=== PATIENT | female | born 1975 | race Caucasian/White ===

== ENCOUNTER 2018-11-24 11:44 | Emergency (ER) | payer OTHER, MEDICAID, SELFPAY ==
[2018-11-24 11:50] VITALS: BP 112/75; PULSE 64; RESP 12; TEMP 36.8; O2SAT 98; BMI 26.6
--- NOTE | 2018-11-24 12:45 | ED.LOWEXIN ---
HPI - Extremity Injury (Lower) <LUCY Olivo - Last Filed: 11/24/18 18:13> General Chief Complaint: Extremity Injury, Lower Stated Complaint: left knee pain Time Seen by Provider: 11/24/18 12:16 Source: patient Mode of arrival: ambulatory Limitations: no limitations History of Present Illness HPI Narrative: 43-year-old female high cholesterol and hypertension, presents emergency department today complaining of left knee pain x 1 week. She states she possibly twisted it last weekend. She describes the pain as a dull ache located on the medial aspect of her knee, pain is a 6/10 that is worse with movement better with rest. She states her knee occasionally gets waking gives out. She denies any surgeries to her left knee. Patient denies fevers, chest pain, shortness of breath, nausea, vomiting, syncope, left calf pain, ankle swelling, hip pain, or head trauma. Related Data Home Medications Medication Instructions Recorded Confirmed albuterol sulfate [Ventolin HFA] 1 puff INH PRN #0 05/15/16 fluticasone propionate 1 spray INTRANASAL #0 05/15/16 meloxicam [Mobic] 7.5 mg PO AMCC #0 05/15/16 Previous Rx's Medication Instructions Recorded diclofenac sodium 4 gram TOP QID #100 gram 11/24/18 Allergies Allergy/AdvReac Type Severity Reaction Status Date / Time hydrocodone [HYDROCODONE] Allergy Unknown NAUSEA Unverified 08/03/17 12:22 Sulfa (Sulfonamide Allergy Unknown Unverified 08/03/17 12:22 Antibiotics) [SULFA (SULFONAMIDE ANTIBIOTICS)] Review of Systems <LUCY Olivo - Last Filed: 11/24/18 18:13> Review of Systems REVIEW OF SYSTEMS: GENERAL: Denies fever or chills. HENT: No head trauma. EYES: No double vision or vision loss. CARDIOVASCULAR: No chest pain or syncope. RESPIRATORY: No shortness of breath or cough. GASTROINTESTINAL: No nausea, vomiting, diarrhea, or constipation. GENITOURINARY: No flank pain or dysuria. MUSCULOSKELETAL: Complains of left pain, see HPI. INTEGUMENTARY: No rash, lesions, or pruritus. NEURO: No numbness, tingling. PSYCH: No behavior or mood changes. PFSH <LUCY Olivo - Last Filed: 11/24/18 18:13> Medical History No significant medical problems (Acute) Social History Smoking Status: Current every day smoker Social History Smoking Status: Current every day smoker Exam <LUCY Olivo - Last Filed: 11/24/18 18:13> Initial Vital Signs Initial Vital Signs: Vital Signs Temperature 98.2 F 11/24/18 11:50 Pulse Rate 64 11/24/18 11:50 Respiratory Rate 12 11/24/18 11:50 Blood Pressure 112/75 11/24/18 11:50 Pulse Oximetry 98 11/24/18 11:50 PHYSICAL EXAMINATION: GENERAL: Well groomed, alert, and cooperative. Answers questions promptly and appropriately. Vital signs noted. HENT: Normocephalic, atraumatic. EYES: Symmetrical, sclera white, no periorbital swelling. CARDIOVASCULAR: S1 and S2 sounds normal. Regular rate and rhythm, no murmurs, clicks, or bruits. No pedal edema. RESPIRATORY: Normal respiratory rate, trachea midline, airway patent. No stridor, nasal flaring or accessory muscle use. Lungs are clear in all salcido. MUSCULOSKELETAL: Left medial knee tenderness with palpation. Pain elected with Trung's test to medial meniscus. Slight swelling to left knee, decreased flexion due to swelling and pain. Normal extension the left leg. Negative drawer test, LCL and MCL appear stable. Full range of motion to hips and ankles bilaterally. No calf tenderness on examination, no ecchymosis, no pedal edema. Patient walks with slight limp due to left knee pain. Equal tone and mass bilaterally. No spinal tenderness or deformities. EXTREMITIES: CMS intact. SKIN: Warm, dry, soft, appropriate color for ethnicity. No lesions, rashes, or wounds. NEURO: Alert and Oriented X 3. No sensory deficits. PSYCH: Appropriate affect and mood. <Donna Espana DO - Last Filed: 11/25/18 07:13> Initial Vital Signs Initial Vital Signs: Vital Signs Temperature 98.2 F 11/24/18 11:50 Pulse Rate 64 11/24/18 11:50 Respiratory Rate 12 11/24/18 11:50 Blood Pressure 112/75 11/24/18 11:50 Pulse Oximetry 98 11/24/18 11:50 Course <LUCY Olivo - Last Filed: 11/24/18 18:13> Course Narrative: Due to location of pain mechanism of injury, explained to patient that a x-ray may not help in evaluation of her pain. She agreed that she would not like an x-ray at this time. Vital Signs - 8 hr 11/24/18 11:50 Temperature 98.2 F Pulse Rate 64 Respiratory Rate 12 Blood Pressure 112/75 Pulse Oximetry 98 <Donna Espana DO - Last Filed: 11/25/18 07:13> Vital Signs - 8 hr 11/24/18 11:50 Temperature 98.2 F Pulse Rate 64 Respiratory Rate 12 Blood Pressure 112/75 Pulse Oximetry 98 MDM - Extremity Injury (Lower) <LUCY Olivo - Last Filed: 11/24/18 18:13> Medical Records Attestation: I reviewed the patient's medical records. Lab Data Attestation: I reviewed the patient's lab results. MDM Narrative Medical decision making narrative: Differential includes meniscal injury (most likely due to medial joint pain, twisting injury, pain with weight-bearing, positive Trung sign), ligament injury (less likely due to stable ligaments on examination, no significant swelling), and arthritis. Less likely septic joint due to lack of fevers or chills, no surrounding erythema or significant swelling, complains of twisting injury. Strict return precautions given and follow-up instructions discussed. Discharge Plan Departure Patient Disposition: Home Clinical Impression: Acute knee pain Qualifiers: Laterality: left Qualified Code(s): M25.562 - Pain in left knee Discharge Date/Time: 11/24/18 13:12 Interventions: ED Discharge Assessment Last Done: 11/24/18 13:17 Instructions: DI for Knee Pain Activity Restrictions/Additional Instructions: Thank you for entrusting me with your care today. As discussed, you knee examination suggest that you may have a meniscus injury. Please follow-up with your primary care provider for further testing if indicated. We have given you a knee immobilizer to prevent her knee from giving out, you may wear this and the Jered bandage to prevent swelling and pain. I have also prescribed you an ointment to rub on your knee to help decrease inflammation and pain. Return to the emergency department if you develos fevers, chills, shortness of breath, a swollen red joint, calf pain, or hard indurated lump in her calf. Prescriptions: New diclofenac sodium 1 % gel 4 gram TOP QID Qty: 100 RF: 0 No Action meloxicam [Mobic] 7.5 MG tablet 7.5 mg PO AMCC Qty: 0 RF: 0 albuterol sulfate [Ventolin HFA] 90 MCG/PUFF HFA aerosol inhaler 1 puff INH PRNQty: 0 RF: 0 fluticasone propionate 16 GM spray,suspension 1 spray Intranasal Qty: 0 RF: 0 <Donna Espana DO - Last Filed: 11/25/18 07:13> Cosign ED Attending Coscesarature Attestation: I was immediately available in the department for consultation. Documentation has been reviewed. I agree with assessment and plan.
== END 2018-11-24 13:12 | disposition home or self-care (01) ==
PROVIDERS: Emergency Provider Nurse Practitioner
DX: M25.562 Pain in left knee (principal); X50.9XXA Other and unspecified overexertion or strenuous movements or postures, initial encounter
CPT/HCPCS: 99282

== ENCOUNTER → 2019-02-19 14:51 | Outpatient (CLI) | payer OTHER, MEDICAID, SELFPAY ==
--- NOTE | 2019-02-19 | DI.RAD.S_ITS ---
PROCEDURE: XR KUB INDICATIONS: CALCULUS OF KIDNEY TECHNIQUE: One view of the abdomen acquired. COMPARISON: [facility], CR, XR ABDOMEN 1 VIEW, 02/27/2018, 11:04. FINDINGS: Surgical changes and devices: Right upper quadrant surgical clips. Bowel: Bowel gas pattern is normal. Bilateral nephrolithiasis measuring up to 8mm on the left and 5 mm on the right. Bones: No suspicious bony lesions. IMPRESSION: Unchanged bilateral nephrolithiasis as above Dictated by: Keegan Schaeffer M.D. on 02/19/2019 at 15:38 Approved by: Keegan Schaeffer M.D. on 02/19/2019 at 15:40
== END ==
PROVIDERS: Family Provider Urology; PCP Nurse Practitioner Gerontology; Visit Provider Urology
DX: N20.0 Calculus of kidney (principal)
CPT/HCPCS: 74018

== ENCOUNTER → 2019-05-12 13:58 | Outpatient (CLI) | payer OTHER, MEDICAID, SELFPAY ==
--- NOTE | 2019-05-12 | DI.RAD.S_ITS ---
PROCEDURE: XR ABDOMEN 1V INDICATIONS: CALCULUS OF KIDNEY TECHNIQUE: One view of the abdomen acquired. COMPARISON: [facility], CR, XR KUB, 02/19/2019, 15:04. FINDINGS: Surgical changes and devices: Cholecystectomy clips are seen. Bowel: Bowel gas pattern is normal. Soft tissues: There is a nonobstructing 5 mm stone at the inferior pole of the right kidney. Faintly seen likely left kidney stones are also present, yet seen with loss confidence. The previously seen 8mm left-sided kidney stone is no longer seen. No definite ureteral stones are seen. Bones: No suspicious bony lesions. IMPRESSION: Stable nonobstructing 5 mm right-sided kidney stone. Resolution of the previously seen 8mm left-sided kidney stone. Potential tiny stones are seen on the left. If it would be helpful for clinical management decision making, please consider a dedicated noncontrast CT of the abdomen and pelvis for further evaluation. Dictated by: Eb Palacio M.D. on 05/12/2019 at 13:47 Approved by: Eb Palacio M.D. on 05/12/2019 at 13:48
== END ==
PROVIDERS: Family Provider Urology; PCP Nurse Practitioner Gerontology; Visit Provider Urology
DX: N20.0 Calculus of kidney (principal)
CPT/HCPCS: 74018

== ENCOUNTER → 2019-06-11 14:15 | Outpatient (CLI) | payer OTHER, MEDICAID, SELFPAY ==
--- NOTE | 2019-06-11 | DI.MRI.S_ITS ---
PROCEDURE: MR LUMBAR SPINE WO CON INDICATIONS: Low back pain. Bilateral hip and foot pain, numbness TECHNIQUE: Noncontrast sagittal T1 spin echo and T2 fast echo, sagittal STIR, axial T1 and T2 fast spin echo through the lumbar spine. In cases with scoliosis, additional coronal T2 fast spin echo may be performed. COMPARISON: [facility], MR, L-SPINE WITHOUT CONTRAST, 08/13/2014, 13:05. [facility], MR, L-SPINE WITHOUT CONTRAST, 11/25/2011, 14:40. [facility], MR, L-SPINE W&WO CONTRAST, 03/09/2016, 17:42. FINDINGS: Image quality: Excellent. Alignment and Curvature: There is normal bony alignment. Bone Marrow: Marrow is of normal overall signal. No acute vertebral body compression fractures. Spinal Cord: Conus medullaris terminates at the L1 level. Visualized cord demonstrates normal signal and size. Paraspinous Soft Tissues: No paravertebral masses. At the anterior aspect of the left kidney, there is an apparent renal cyst seen, with uniform increased T2-weighted signal and uniform decreased T1 weighted signal. This patient has transitional lumbar anatomy. For the purposes of this examination, the level with the last well-developed disc space is considered to be L5-S1. By this numbering scheme, the L5 level is transitional and partially sacralized. This numbering scheme is chosen to remain consistent with the 2016 prior lumbar spine MRI report. T11-T12: Mild to moderate loss of disc height and disc signal are seen. No significant neural foraminal or central canal narrowing can be seen. T12-L1: Normal appearance. L1-L2: The disc height is well-preserved. Loss of disc signal is seen at this level. Bridging endplate osteophytes are seen. L2-L3: The disc height and disk signal are well-preserved. Mild generalized disc bulge is seen. No significant neural foraminal or central canal narrowing can be seen. When comparison is made with the prior examination, these findings are similar. L3-L4: The disc height is well-preserved. Loss of disc signal is seen at this level. Moderate disc bulge is seen, with a mild central disc protrusion. There is at least moderate bilateral neural foraminal narrowing seen. There is moderate left-sided and mild to moderate right-sided neural foraminal narrowing seen. Moderate to severe central canal narrowing is seen, as on series 7 image 24. There is associated annular fissure seen posteriorly. These imaging findings have progressed compared to the prior study. L4-L5: There is at least moderate loss of disc height and disc signal seen. Prior right hemilaminectomy change is noted. Moderate disc bulge is seen, with a central/right disc extrusion, with an associated annular fissure. Mild to moderate facet hypertrophy is seen. There is at least moderate bilateral neural foraminal narrowing seen. Minimal central canal narrowing is seen. These imaging findings have progressed compared to the prior study. L5-S1: There is a transitional, rudimentary disc seen at this level. No significant neural foraminal or central canal narrowing can be seen. IMPRESSION: Lower lumbar spine degenerative changes are seen, which have progressed at the L3-L4 level and the L4-L5 level compared to 2016. Dictated by: Eb Palacio M.D. on 06/11/2019 at 14:22 Approved by: Eb Palacio M.D. on 06/11/2019 at 14:29
== END ==
PROVIDERS: Family Provider Urology; PCP Nurse Practitioner Gerontology; Referring Provider Acupuncturist; Visit Provider Acupuncturist
DX: M54.5 Low back pain (principal); M47.816 Spondylosis without myelopathy or radiculopathy, lumbar region; M25.551 Pain in right hip; M25.552 Pain in left hip; M79.671 Pain in right foot; M79.672 Pain in left foot; R20.0 Anesthesia of skin
CPT/HCPCS: 72148

== ENCOUNTER 2019-09-20 14:01 | Emergency (ER) | payer OTHER, MEDICAID, SELFPAY ==
[2019-09-20 14:05] VITALS: BP 178/89; PULSE 94; RESP 18; TEMP 36.7; O2SAT 10; BMI 29.7
[2019-09-20 14:35] LABS: Bacteria Urine None Seen; WBC Urine None Seen (0-5/HPF)
[2019-09-20 14:37] LABS: Appearance Urine UA SL CLOUDY; Bilirubin Urine UA NEGATIVE (NEGATIVE); Ketones Urine UA NEGATIVE (NEGATIVE)
[2019-09-20 14:38] LABS: Color Urine UA ORANGE
[2019-09-20 14:52] LABS: Culture Indicated Urine Cult Not Indicated; RBC Urine 0-1/HPF (0-5/HPF); Squamous Epithelial Cell Urine 0-1 /HPF (0-5/HPF)
[2019-09-20] MEDS: KETOROLAC 60 MG/2 ML VIAL 30 MG IV ×2 (15:16→19:36)
--- NOTE | 2019-09-20 15:36 | ED_ITS ---
HPI - Female Genitourinary <Jordyn Barkley PA-C - Last Filed: 09/20/19 22:43> General Chief complaint: Urogenital-Female Stated complaint: Kidney Stone Time Seen by Provider: 09/20/19 15:11 Source: patient Mode of arrival: Ambulatory History of Present Illness HPI Narrative: This is a 44-year-old woman with a known history of 1 ppd smoker, nephrolithiasis and recent lithotripsy 2 months ago on the left who presents with severe pain in her right flank that began this morning at 7:00 a.m.. She says that the pain feels just like when she has had kidney stones have been passing in the past, she has had kidney stones that since she was 21 years old. She has some associated nausea. She did take 1 Flomax that she had left over, and also took 1 OTC and said this morning, her pain was a 10/10 on arrival to [facility] emergency department. She has had some urinary symptoms as well this morning with difficulty passing urine until she got to the emergency department she was able to get a better flow. She has otherwise been in her normal state of health except that she has had a chronic cough for about 2 months now was diagnosed with bronchitis previously given antibiotics and the cough returned within 2 weeks. She is a pack-a-day smoker. She denies fever, vomiting, diarrhea, chills, change in appetite, or any other symptoms. MD Complaint: dysuria and other (passing a stone) Onset (ago): hour(s) (9) Female Urogenital Radiation: R Flank Severity: severe Severity scale (1-10): 10 Quality: Aching (intermittently worse) Duration: constant Relieving factors: none Exacerbating factors: none Urinary symptoms: Difficulty Urinating and Flank Pain Associated symptoms: denies other symptoms Related Data Home Medications Medication Instructions Recorded Confirmed albuterol sulfate [Ventolin HFA] 1 puff INH PRN #0 05/15/16 fluticasone propionate 1 spray INTRANASAL #0 05/15/16 meloxicam [Mobic] 7.5 mg PO AMCC #0 05/15/16 Previous Rx's Medication Instructions Recorded diclofenac sodium 4 gram TOP QID #100 gram 11/24/18 ibuprofen 800 mg PO Q6H #30 tab MDD 3200mg 09/20/19 tamsulosin 0.8 mg PO DAILY #60 cap MDD .8 09/20/19 tamsulosin [Flomax] 0.8 mg PO DAILY #30 cap 09/20/19 Allergies Allergy/AdvReac Type Severity Reaction Status Date / Time hydrocodone [HYDROCODONE] Allergy Unknown NAUSEA Unverified 08/03/17 12:22 Sulfa (Sulfonamide Allergy Unknown Unverified 08/03/17 12:22 Antibiotics) [SULFA (SULFONAMIDE ANTIBIOTICS)] Review of Systems <Jordyn Barkley PA-C - Last Filed: 09/20/19 22:43> Review of Systems Narrative: GENERAL: Denies chills, fatigue, malaise, fever, sweats. HEENT: Denies sinus pain, ear pain, sore throat, difficulty swallowing, dizziness. RESPIRATORY: Denies dyspnea, cough, wheezing, hemoptysis, sputum. CARDIOVASCULAR: Denies chest pain, palpitations, orthopnea, edema, GASTROINTESTINAL: Denies vomiting, endorses some mild nausea on the way here, abdominal pain on the right side/flank, and suprapubically, denies diarrhea, constipation, melena. : Endorses dysuria and difficulty with her stream since 7:00 a.m. this morning, Denies frequency, incontinence, hematuria, urinary retention. MUSCULOSKELETAL: denies weakness, joint pain, or bony pain SKIN: Denies rash, skin lesions, or other NEUROLOGIC: Denies weakness, headache, numbness, change in speech, confusion, seizures, incoordination. PSYCHIATRIC: No concerning psychosocial issues. 12 point review of systems is negative except for those stated above Patient History <Jordyn Barkley PA-C - Last Filed: 09/20/19 22:43> Medical History No significant medical problems (Acute) Substance Use Type: does not use Exam <Jordyn Barkley PA-C - Last Filed: 09/20/19 22:43> Narrative Exam Narrative: GENERAL: 44 year old patient appears stated age. Well-nourished, well-developed patient, in severe distress. HEAD: Atraumatic. Normocephalic. EYES: Pupils equal round and reactive. Extraocular motions intact. No scleral icterus. No injection or drainage. ENT: Nose without bleeding, purulent drainage. Throat without erythema, tonsillar hypertrophy or exudate. Airway patent. NECK: Trachea midline. Non tender CARDIOVASCULAR: Regular rate and rhythm without murmurs, gallops, or rubs. RESPIRATORY: Clear to auscultation. Breath sounds equal bilaterally. No wheezes, rales, or rhonchi. GASTROINTESTINAL: Abdomen soft, slighlty-tender over the suprapubic area and RUQ, nondistended. EXTREMITIES: No edema or joint tenderness. BACK: Nontender without deformity or crepitance. Flank tenderness on the right. NEURO: AOx3. SKIN: No rash or erythema of visible areas Initial Vital Signs Initial Vital Signs: Vital Signs Temperature 98.1 F 09/20/19 14:05 Pulse Rate 94 H 09/20/19 14:05 Respiratory Rate 18 09/20/19 14:05 Blood Pressure 178/89 H 09/20/19 14:05 Pulse Oximetry 10 L 09/20/19 14:05 <Philip Calix MD - Last Filed: 09/21/19 07:57> Initial Vital Signs Initial Vital Signs: Vital Signs Temperature 98.1 F 09/20/19 14:05 Pulse Rate 94 H 09/20/19 14:05 Respiratory Rate 18 09/20/19 14:05 Blood Pressure 178/89 H 09/20/19 14:05 Pulse Oximetry 10 L 09/20/19 14:05 Course <Jordyn Barkley PA-C - Last Filed: 09/20/19 22:43> Orders Ordered: Discontinued Medications Hydromorphone HCl (Dilaudid) 0.5 mg IV NOW ONE Stop: 09/20/19 16:08 Last Admin: 09/20/19 16:23 Dose: 0.5 mg Documented by: RUDY Hydromorphone HCl (Dilaudid) 1 mg IV NOW ONE Stop: 09/20/19 17:21 Last Admin: 09/20/19 17:26 Dose: 1 mg Documented by: ROLLY Sodium Chloride (Normal Saline 0.9%) 1,000 mls @ 150 mls/hr IV CONT FALGUNI Last Infusion: 09/20/19 19:40 Dose: 0 mls/hr Documented by: Admin: 09/20/19 15:58 Dose: 150 mls/hr Documented by: RUDY Ketorolac Tromethamine (Toradol) 30 mg IV NOW ONE Stop: 09/20/19 15:12 Last Admin: 09/20/19 15:16 Dose: 30 mg Documented by: RUDY Ketorolac Tromethamine (Toradol) 30 mg IV NOW ONE Stop: 09/20/19 19:13 Last Admin: 09/20/19 19:36 Dose: 30 mg Documented by: GELY Tamsulosin HCl (Flomax) 0.4 mg PO NOW ONE Stop: 09/20/19 19:22 Last Admin: 09/20/19 19:39 Dose: 0.4 mg Documented by: GELY Consultations Consultation #1: I spoke with Dr. Jarrell who is a colleague of Dr. Baxter, (the patient's urologist) regarding this patient, he advised to call back after we have a CT KUB, called back after we had CT KUB results (a 5 mm stone in the right mid ureter with mild hydronephrosis) and he advised that it is safe to give her another 30 of Toradol for pain relief prior to discharge and suggests that she should have a 30 day prescription of Flomax as well as continue to take NSAIDs for her pain and she can call the clinic tomorrow to arrange follow-up appointment with Dr. Baxter for early next week Time: 19:14 Vital Signs Vital signs: Vital Signs - 8 hr 09/20/19 19:35 Pulse Rate 91 H Respiratory Rate 17 Blood Pressure [Right Arm] 145/72 H Pulse Oximetry 95 <Philip Calix MD - Last Filed: 09/21/19 07:57> Orders Ordered: Discontinued Medications Hydromorphone HCl (Dilaudid) 0.5 mg IV NOW ONE Stop: 09/20/19 16:08 Last Admin: 09/20/19 16:23 Dose: 0.5 mg Documented by: RUDY Hydromorphone HCl (Dilaudid) 1 mg IV NOW ONE Stop: 09/20/19 17:21 Last Admin: 09/20/19 17:26 Dose: 1 mg Documented by: ROLLY Sodium Chloride (Normal Saline 0.9%) 1,000 mls @ 150 mls/hr IV CONT FALGUNI Last Infusion: 09/20/19 19:40 Dose: 0 mls/hr Documented by: Admin: 09/20/19 15:58 Dose: 150 mls/hr Documented by: RUDY Ketorolac Tromethamine (Toradol) 30 mg IV NOW ONE Stop: 09/20/19 15:12 Last Admin: 09/20/19 15:16 Dose: 30 mg Documented by: RUDY Ketorolac Tromethamine (Toradol) 30 mg IV NOW ONE Stop: 09/20/19 19:13 Last Admin: 09/20/19 19:36 Dose: 30 mg Documented by: GELY Tamsulosin HCl (Flomax) 0.4 mg PO NOW ONE Stop: 09/20/19 19:22 Last Admin: 09/20/19 19:39 Dose: 0.4 mg Documented by: GELY Vital Signs Vital signs: Vital Signs - 8 hr 09/20/19 19:35 Pulse Rate 91 H Respiratory Rate 17 Blood Pressure [Right Arm] 145/72 H Pulse Oximetry 95 MDM - Female Genitourinary <Jordyn Barkley PA-C - Last Filed: 09/20/19 22:43> Differential Diagnosis Differential diagnosis: Likely urinary tract infection and other (Ureterolithiasis, hydronephrosis) Medical Records Attestation: I reviewed the patient's medical records. Lab Data Attestation: I reviewed the patient's lab results. Result diagrams: 09/20/19 14:24 09/20/19 14:24 Labs: Lab Results 09/20/19 09/20/19 09/20/19 Range/Units 14:24 14:24 14:30 WBC 15.0 H (4.5-11.0) X10^3/uL RBC 4.30 (4.0-5.2) X10^6/uL Hgb 13.9 (12.0-16.0) g/dL Hct 40.3 (36-46) % MCV 93.8 (80-100) fL MCH 32.3 (26-34) PG MCHC 34.5 (30-36) % RDW 13.2 (11.6-14.8) % Plt Count 303 (150-400) X10^3/uL Neut % (Auto) 64.1 (50-75) % Lymph % (Auto) 24.8 L (25-40) % [place] % (Auto) 8.9 (3-14) % Eos % (Auto) 1.8 L (2-4) % Baso % (Auto) 0.4 (0-2) % Neut # (Auto) 9600 H (2448-0364) /uL Lymph # (Auto) 3700 (2260-4243) /uL [place] # (Auto) 1300 H (0-900) /uL Eos # (Auto) 300 (0-450) /uL Baso # (Auto) 100 (0-100) /uL Sodium 134 L (137-145) mmol/L Potassium 4.3 (3.4-5.1) mmol/L Chloride 102 (98-107) mmol/L Carbon Dioxide 21 L (22-32) mmol/L BUN 23 H (7-17) mg/dL Creatinine 1.20 H (0.52-1.04) mg/dL Estimated GFR 48.8 L (>60) mL/min BUN/Creatinine Ratio 19.2 (6-22) Glucose 115 H (70-100) mg/dL Calcium 9.3 (8.4-10.2) mg/dL Total Bilirubin 0.5 (0.2-1.3) mg/dL AST 32 (14-36) IU/L ALT 12 (<35) IU/L Alkaline Phosphatase 52 (38-126) U/L Total Protein 7.8 (6.3-8.2) g/dL Albumin 4.5 (3.5-5.0) g/dL Globulin 3.3 (1.7-4.1) g/dL Albumin/Globulin Ratio 1.4 (1.0-2.8) Lipase 71 (23-300) U/L Urine Color [place] Urine Appearance Sl cloudy Urine pH TNP Ur Specific [place] TNP Urine Protein TNP Urine Glucose (UA) TNP Urine Ketones Negative (NEGATIVE) Urine Occult Blood TNP Urine Nitrate TNP Urine Bilirubin Negative (NEGATIVE) Urine Urobilinogen TNP Ur Leukocyte Esterase TNP Urine RBC 0-1/hpf (0-5/HPF) Urine WBC None seen (0-5/HPF) Ur Squamous Epith Cells 0-1 /hpf (0-5/HPF) Urine Bacteria None seen (None) Ur Culture Indicated? Cult not indicated Imaging Data CT scan - abdomen/pelvis: Attestation: I personally reviewed and interpreted this imaging study as follows: Radiologist's Impression: [address] [address] [address] Scan Report Signed Patient: Yohana Ayon [facility]#: [id number] : 1975Acct:[id number] Age/Sex: 44 / FDate of Service: 09/20/19 Loc: ED Accession Number: [id number] Procedure: CT kidney ureter bladder (KUB) Ordering Provider: Jordyn Barkley P.A-C PROCEDURE: CT KIDNEY URETER BLADDER (KUB) INDICATIONS: suspect uereterolithiasis TECHNIQUE: Noncontrast 5 mm thick sections acquired from the diaphragms to the symphysis. 5 mm thick coronal and sagittal reformats were then performed. For radiation dose reduction, the following was used: automated exposure control, adjustment of mA and/or kV according to patient size. COMPARISON: None. FINDINGS: Image quality: Excellent. Lung bases: Lung bases are clear. Heart size is normal. Urinary system: There is mild right renal enlargement. Left kidney is normal in size. Small nonobstructing bilateral renal calculi are present. There is moderate right hydronephrosis and mild diffuse right proximal ureteral dilatation. Mild dilatation of the proximal right ureter. Within the right mid/proximal ureter there is a 5 mm diameter calculus with Hounsfield units of 265. No left hydronephrosis. Bladder is decompressed. Other solid organs: Liver is normal in size. Gallbladder is surgically absent no. Pancreas is normal in contours. Spleen is normal in size. No adrenal nodules. Peritoneum and bowel: Unenhanced bowel loops demonstrate normal wall thickness and caliber. No free fluid or air. Normal appendix. Nodes and vessels: No retroperitoneal or mesenteric adenopathy by size criteria. Aorta and inferior vena cava are normal in caliber. Abdominal wall: No ventral hernias. Pelvis: No free pelvic fluid. No inguinal hernias or adenopathy. Bones: No suspicious bony lesions. No vertebral body compression fractures. IMPRESSION: 1. Right proximal ureteral calculus causing moderate right hydronephrosis. 2. Nonobstructing small bilateral renal calculi. 3. Normal appendix. Dictated by: Maribel Ortiz M.D. on 09/20/2019 at 18:16 Approved by: Maribel Ortiz M.D. on 09/20/2019 at 18:20 Abdominal x-ray: Attestation: I personally reviewed and interpreted this imaging study as follows: Radiologist's Impression: [address] [address] XRay Report Signed Patient: Yohana Ayon MMR#: [id number] : 1975Acct:[id number] Age/Sex: 44 / FDate of Service: 09/20/19 Loc: ED Accession Number: [id number] Procedure: XR KUB Ordering Provider: Jordyn Barkley P.A-C PROCEDURE: XR KUB INDICATIONS: ureteral stones TECHNIQUE: One view of the abdomen acquired. COMPARISON: [facility], , XR KUB, 02/19/2019, 15:04. FINDINGS: Surgical changes and devices: Surgical clips consistent with cholecystectomy right upper quadrant. Bowel: Bowel gas pattern is normal. Soft tissues: No suspicious abdominal calcifications. Visualized solid organ contours appear normal in size. Prior plain film imaging of the abdomen/pelvis that identified a rounded calcification overlying the lower third collecting system area of the right kidney measuring only approximately 5 mm in diameter but also a 10 mm diameter crescentic calcification superimposed on the middle third of the left kidney area. Both of these are no longer seen. Bones: No suspicious bony lesions. IMPRESSION: No definite ureteral or renal collecting system stone found. Prior cholecystectomy. Resolution of 2 calculi discussed above from the expected region of the kidneys bilaterally. Dictated by: Skyler Lucas M.D. on 09/20/2019 at 16:20 Approved by: Skyler Lucas M.D. on 09/20/2019 at 16:22 Chest x-ray: Attestation: I personally reviewed and interpreted this imaging study as follows: Radiologist's Impression: [address] [address] XRay Report Signed Patient: Yohana Ayon MMR#: [id number] : 1975Acct:[id number] Age/Sex: 44 / FDate of Service: 09/20/19 Loc: ED Accession Number: [id number] Procedure: XR chest 1V Ordering Provider: Jordyn Barkley P.A-C PROCEDURE: XR CHEST 1V INDICATIONS: cough, wheezing, productive TECHNIQUE: One view of the chest was acquired. COMPARISON: None. FINDINGS: Surgical changes and devices: None. Lungs and pleura: Lungs are clear. No pleural effusions or pneumothorax. Mediastinum: Mediastinal contours appear normal. Heart size is normal. Bones and chest wall: No suspicious bony lesions. Overlying soft tissues appear unremarkable. IMPRESSION: Normal for age, source of current cough and wheezing symptoms is not seen. Dictated by: Skyler Lucas M.D. on 09/20/2019 at 16:20 Approved by: Skyler Lucas M.D. on 09/20/2019 at 16:20 [facility] Narrative Medical decision making narrative: This is a 44-year-old with a history of pack-a-day smoking and frequent passing of kidney stones with lithotripsy on the left kidney 2 months ago who presents to the emergency department with severe right flank pain radiating to her groin that began at 7:00 a.m. this morning. A partner of her urologist was contacted regarding her case. Differential diagnoses that were considered include nephrolithiasis, ureterolithiasis, UTI, pyelonephritis, appendicitis, colitis, cholecystitis. Based on her exam history and imaging a suspect ureterolithiasis with hydronephrosis, the patient was treated with Dilaudid, Toradol, and Flomax in the emergency department she was given a prescription for high-dose ibuprofen and Flomax and her urologist partner was contacted. I have low suspicion that there is any other acute abdominal process. <Philip Calix MD - Last Filed: 09/21/19 07:57> Lab Data Labs: Lab Results 09/20/19 09/20/19 09/20/19 Range/Units 14:24 14:24 14:30 WBC 15.0 H (4.5-11.0) X10^3/uL RBC 4.30 (4.0-5.2) X10^6/uL Hgb 13.9 (12.0-16.0) g/dL Hct 40.3 (36-46) % MCV 93.8 (80-100) fL MCH 32.3 (26-34) PG MCHC 34.5 (30-36) % RDW 13.2 (11.6-14.8) % Plt Count 303 (150-400) X10^3/uL Neut % (Auto) 64.1 (50-75) % Lymph % (Auto) 24.8 L (25-40) % [place] % (Auto) 8.9 (3-14) % Eos % (Auto) 1.8 L (2-4) % Baso % (Auto) 0.4 (0-2) % Neut # (Auto) 9600 H (1551-3825) /uL Lymph # (Auto) 3700 (7767-8738) /uL [place] # (Auto) 1300 H (0-900) /uL Eos # (Auto) 300 (0-450) /uL Baso # (Auto) 100 (0-100) /uL Sodium 134 L (137-145) mmol/L Potassium 4.3 (3.4-5.1) mmol/L Chloride 102 (98-107) mmol/L Carbon Dioxide 21 L (22-32) mmol/L BUN 23 H (7-17) mg/dL Creatinine 1.20 H (0.52-1.04) mg/dL Estimated GFR 48.8 L (>60) mL/min BUN/Creatinine Ratio 19.2 (6-22) Glucose 115 H (70-100) mg/dL Calcium 9.3 (8.4-10.2) mg/dL Total Bilirubin 0.5 (0.2-1.3) mg/dL AST 32 (14-36) IU/L ALT 12 (<35) IU/L Alkaline Phosphatase 52 (38-126) U/L Total Protein 7.8 (6.3-8.2) g/dL Albumin 4.5 (3.5-5.0) g/dL Globulin 3.3 (1.7-4.1) g/dL Albumin/Globulin Ratio 1.4 (1.0-2.8) Lipase 71 (23-300) U/L Urine Color [place] Urine Appearance Sl cloudy Urine pH TNP Ur Specific [place] TNP Urine Protein TNP Urine Glucose (UA) TNP Urine Ketones Negative (NEGATIVE) Urine Occult Blood TNP Urine Nitrate TNP Urine Bilirubin Negative (NEGATIVE) Urine Urobilinogen TNP Ur Leukocyte Esterase TNP Urine RBC 0-1/hpf (0-5/HPF) Urine WBC None seen (0-5/HPF) Ur Squamous Epith Cells 0-1 /hpf (0-5/HPF) Urine Bacteria None seen (None) Ur Culture Indicated? Cult not indicated Discharge Plan Departure Patient Disposition: Home Clinical Impression: Right ureteral stone, Acute right flank pain Discharge Date/Time: 09/20/19 19:54 Instructions: DI for Kidney Stones Activity Restrictions/Additional Instructions: Thank you for allowing us to be part of her care in the emergency department today. There is no evidence of an emergent or life threatening illness at this time, but follow up with your doctor in 1-2 days is recommended nonetheless to continue to rule out serious underlying causes of your symptoms. Please call the office for an appointment. Please return to the Emergency Department for any worsening or persistent symptoms. Please take medications as directed. This CT scan did show that you have a 5 mm stone in the middle of your right ureter that should explain the cause of the pain in you have been having. After consultation with your urologist office, they recommend that there is a good chance that this will pass on its own given the size encourage you to take Flomax to help pass the stone and NSAIDs for pain as well as strain your urine at. I have prescribed a higher dose of ibuprofen for you to take as well as the flomax. Please monitor your symptoms and if you develop a fever, nausea or anything else of concern to you please call your urologist office or seek medical care immediately. You should call Dr. Negron office in the morning to set up an appointment for follow-up. Prescriptions: New tamsulosin [Flomax] 0.4 mg capsule 0.8 mg PO DAILY Qty: 30 RF: 0 ibuprofen 800 mg tablet 800 mg PO Q6H MDD 3200mg Qty: 30 RF: 0 tamsulosin 0.4 mg capsule 0.8 mg PO DAILY MDD .8 Qty: 60 RF: 0 No Action meloxicam [Mobic] 7.5 MG tablet 7.5 mg PO AMCC Qty: 0 RF: 0 albuterol sulfate [Ventolin HFA] 90 MCG/PUFF HFA aerosol inhaler 1 puff INH PRNQty: 0 RF: 0 fluticasone propionate 16 GM spray,suspension 1 spray Intranasal Qty: 0 RF: 0 diclofenac sodium 1 % gel 4 gram TOP QID Qty: 100 RF: 0 Referrals: Susan Baxter MD [Family Provider] - Caitlin Petit ARNP [Primary Care Provider] -
[2019-09-20] MEDS: SODIUM CHLORIDE 0.9% 1,000 ML 150 ML IV (15:58)
[2019-09-20 16:03] LABS: Add Manual Diff / Slide Review NO; Basophils Absolute Auto 100 /uL (0-100); Basophils Percent Auto 0.4 % (0-2); Eosinophils Absolute Auto 300 /uL (0-450); Eosinophils Percent Auto 1.8 % (2-4); Hematocrit 40.3 % (36-46); Hemoglobin 13.9 g/dL (12.0-16.0); Lymphocytes Absolute Auto 3700 /uL (1100-4500); Lymphocytes Percent Auto 24.8 % (25-40); Mean Corpuscular HGB Conc 34.5 % (30-36); Mean Corpuscular Hemoglobin 32.3 PG (26-34); Mean Corpuscular Volume 93.8 fL (80-100); Monocytes Absolute Auto 1300 /uL (0-900); Monocytes Percent Auto 8.9 % (3-14); Neutrophils Absolute Auto 9600 /uL (1500-7000); Neutrophils Percent Auto 64.1 % (50-75); Platelet Count 303 X10^3/uL (150-400); Red Cell Distribution Width 13.2 % (11.6-14.8)
--- NOTE | 2019-09-20 16:05 | DI.RAD.S_ITS ---
PROCEDURE: XR CHEST 1V INDICATIONS: cough, wheezing, productive TECHNIQUE: One view of the chest was acquired. COMPARISON: None. FINDINGS: Surgical changes and devices: None. Lungs and pleura: Lungs are clear. No pleural effusions or pneumothorax. Mediastinum: Mediastinal contours appear normal. Heart size is normal. Bones and chest wall: No suspicious bony lesions. Overlying soft tissues appear unremarkable. IMPRESSION: Normal for age, source of current cough and wheezing symptoms is not seen. Dictated by: Skyler Lucas M.D. on 09/20/2019 at 16:20 Approved by: Skyler Lucas M.D. on 09/20/2019 at 16:20
[2019-09-20 16:10] LABS: Alanine Aminotransferase 12 IU/L (<35); Albumin 4.5 g/dL (3.5-5.0); Albumin Globulin Ratio 1.4 (1.0-2.8); Alkaline Phosphatase 52 U/L (38-126); Aspartate Aminotransferase 32 IU/L (14-36); BUN Creatinine Ratio 19.2 (6-22); Bilirubin Total 0.5 mg/dL (0.2-1.3); Blood Urea Nitrogen 23 mg/dL (7-17); Calcium 9.3 mg/dL (8.4-10.2); Carbon Dioxide 21 mmol/L (22-32); Chloride 102 mmol/L (98-107); Estimated Glomerular Filt Rate 48.8 mL/min (>60); Globulin 3.3 g/dL (1.7-4.1); Glucose 115 mg/dL (70-100); HEMOLYSIS < 15 (0-50); Lipase 71 U/L (23-300); Potassium 4.3 mmol/L (3.4-5.1); Sodium 134 mmol/L (137-145); Total Protein 7.8 g/dL (6.3-8.2)
[2019-09-20] MEDS: HYDROMORPHONE 0.5 MG INJ IV (16:23)
--- NOTE | 2019-09-20 17:20 | PC.NURSE ---
pt complaining of increased pain, 12/02. RN roslyn alonso
[2019-09-20] MEDS: HYDROMORPHONE 1 MG INJ IV (17:26)
--- NOTE | 2019-09-20 17:48 | DI.CT.S_ITS ---
PROCEDURE: CT KIDNEY URETER BLADDER (KUB) INDICATIONS: suspect uereterolithiasis TECHNIQUE: Noncontrast 5 mm thick sections acquired from the diaphragms to the symphysis. 5 mm thick coronal and sagittal reformats were then performed. For radiation dose reduction, the following was used: automated exposure control, adjustment of mA and/or kV according to patient size. COMPARISON: None. FINDINGS: Image quality: Excellent. Lung bases: Lung bases are clear. Heart size is normal. Urinary system: There is mild right renal enlargement. Left kidney is normal in size. Small nonobstructing bilateral renal calculi are present. There is moderate right hydronephrosis and mild diffuse right proximal ureteral dilatation. Mild dilatation of the proximal right ureter. Within the right mid/proximal ureter there is a 5 mm diameter calculus with Hounsfield units of 265. No left hydronephrosis. Bladder is decompressed. Other solid organs: Liver is normal in size. Gallbladder is surgically absent no. Pancreas is normal in contours. Spleen is normal in size. No adrenal nodules. Peritoneum and bowel: Unenhanced bowel loops demonstrate normal wall thickness and caliber. No free fluid or air. Normal appendix. Nodes and vessels: No retroperitoneal or mesenteric adenopathy by size criteria. Aorta and inferior vena cava are normal in caliber. Abdominal wall: No ventral hernias. Pelvis: No free pelvic fluid. No inguinal hernias or adenopathy. Bones: No suspicious bony lesions. No vertebral body compression fractures. IMPRESSION: 1. Right proximal ureteral calculus causing moderate right hydronephrosis. 2. Nonobstructing small bilateral renal calculi. 3. Normal appendix. Dictated by: Maribel Ortiz M.D. on 09/20/2019 at 18:16 Approved by: Maribel Ortiz M.D. on 09/20/2019 at 18:20
[2019-09-20 19:35] VITALS: BP 145/72; PULSE 91; RESP 17; O2SAT 95
[2019-09-20] MEDS: TAMSULOSIN 0.4 MG CAPSULE PO (19:39)
== END 2019-09-20 19:54 | disposition home or self-care (01) ==
PROVIDERS: Emergency Provider Student in an Organized Health Care Education/Training Program; Family Provider Urology; PCP Nurse Practitioner Gerontology
DX: N20.1 Calculus of ureter (principal); Z87.442 Personal history of urinary calculi; R10.9 Unspecified abdominal pain; R05 Cough; R06.2 Wheezing; R30.0 Dysuria
CPT/HCPCS: 36415; 71045; 74018; 74176; 80053; 81001; 83690; 85025; 96361; 96374; 96375; 96376; 99284; J1170; J1885

== ENCOUNTER 2019-09-25 17:22 | Emergency (ER) | payer OTHER, MEDICAID, SELFPAY ==
[2019-09-25 17:25] VITALS: BP 140/86; PULSE 110; RESP 18; TEMP 37; O2SAT 98
--- NOTE | 2019-09-25 17:38 | ED_ITS ---
HPI - Female Genitourinary General Chief complaint: Urogenital-Female Stated complaint: Had Kidney Stone, May Have Not Passed, Bloated Time Seen by Provider: 09/25/19 17:25 Source: patient Mode of arrival: Ambulatory Limitations: no limitations History of Present Illness HPI Narrative: 44-year-old female daily smoker with a history of kidney stones and asthma presents with a chief complaint of severe right flank pain and bloating of her abdomen. Her pain is worse with motion and improves with rest. She has frequency of urination but denies any fever or chills. She has has some nausea. She has been taking all of her medications as per neurology's recommendations including multiple stool softeners. She has had multiple rather large bowel movements. She states her stone is 5 mm and that size has histori ankur past in her. MD Complaint: other Onset (ago): hour(s) Location: RLQ Female Urogenital Radiation: R Flank Severity: moderate Quality: Aching and Cramping Duration: constant Urinary symptoms: Difficulty Urinating and Flank Pain Associated symptoms: denies other symptoms Related Data Home Medications Medication Instructions Recorded Confirmed albuterol sulfate [Ventolin HFA] 1 puff INH PRN #0 05/15/16 fluticasone propionate 1 spray INTRANASAL #0 05/15/16 meloxicam [Mobic] 7.5 mg PO AMCC #0 05/15/16 Previous Rx's Medication Instructions Recorded diclofenac sodium 4 gram TOP QID #100 gram 11/24/18 ibuprofen 800 mg PO Q6H #30 tab MDD 3200mg 09/20/19 ketorolac 10 mg PO Q8H PRN #15 tab 09/25/19 Allergies Allergy/AdvReac Type Severity Reaction Status Date / Time hydrocodone [HYDROCODONE] Allergy Unknown NAUSEA Verified 09/25/19 17:35 Sulfa (Sulfonamide Allergy Unknown Verified 09/25/19 17:35 Antibiotics) [SULFA (SULFONAMIDE ANTIBIOTICS)] tamsulosin [From Flomax] AdvReac Intermediate Vomiting Verified 09/25/19 17:35 Review of Systems Constitutional Constitutional: Denies chills, Denies fatigue, Denies fever(s), Denies frequent falls, Denies lethargy and Denies weakness Eyes Eyes: Denies change in vision, Denies eye discharge, Denies irritation and Denies loss of vision ENT Ears, Nose, Mouth, and Throat: Denies change in voice, Denies dizziness, Denies neck pain, Denies sore throat and Denies throat swelling Cardiovascular Cardiovascular: Denies chest pain, Denies irregular heart rhythm, Denies lightheadedness, Denies palpitations, Denies dyspnea, Denies dyspnea on exertion and Denies orthopnea Respiratory Respiratory: Denies cough, Denies dyspnea, Denies dyspnea on exertion and Denies wheezing Gastrointestinal Gastrointestinal: Denies abdominal pain, Denies change in bowel habits, Denies diarrhea, Denies nausea and Denies vomiting Genitourinary Genitourinary: Denies hematuria, Reports flank pain, Denies urinary incontinence and Denies urinary urgency Musculoskeletal Musculoskeletal: Denies back pain, Denies muscle weakness, Denies neck pain, Denies numbness and Denies tingling Integumentary/Breasts Skin/Breast: Denies pruritus, Denies erythema, Denies rash and Denies wounds Neurologic Neurologic: Denies behavioral changes, Denies confusion, Denies dizziness, Denies frequent falls, Denies loss of vision, Denies numbness, Denies tingling and Denies weakness Psychiatric Psychiatric: Denies anxiety, Denies behavioral changes, Denies confusion, Denies depression, Denies homicidal ideation and Denies suicidal ideation Endocrine Endocrine: Denies fatigue, Denies flushing and Denies palpitations Hematologic/Lymphatic Hematologic/Lymphatic: Denies easy bruising Allergic/Immunologic Allergic/Immunologic: Denies urticaria, Denies throat swelling and Denies wheezing Patient History Medical History No significant medical problems (Acute) alcohol intake frequency: 0-2 drinks per day Substance Use Type: does not use Exam Narrative Exam Narrative: GENERAL: [44] year old patient appears stated age. Well- nourished, well-developed patient, in mild distress. HEAD: Atraumatic. Normocephalic. EYES: Pupils equal round and reactive. Extraocular motions intact. No scleral icterus. No injection or drainage. ENT: Nose without bleeding, purulent drainage. Throat without erythema, tonsillar hypertrophy or exudate. Airway patent. NECK: Trachea midline. Non tender CARDIOVASCULAR: Regular rate and rhythm without murmurs, gallops, or rubs. RESPIRATORY: Clear to auscultation. Breath sounds equal bilaterally. No wheezes, rales, or rhonchi. GASTROINTESTINAL: Abdomen soft, mild bloating, nondistended. Right CVA tenderness EXTREMITIES: No edema or joint tenderness. BACK: Nontender without deformity or crepitance. No flank tenderness. NEURO: AOx3. SKIN: No rash or erythema of visible areas Initial Vital Signs Initial Vital Signs: Vital Signs Temperature 98.6 F 09/25/19 17:25 Pulse Rate 110 H 09/25/19 17:25 Respiratory Rate 18 09/25/19 17:25 Blood Pressure 140/86 09/25/19 17:25 Pulse Oximetry 98 09/25/19 17:25 Course Orders Ordered: ED Orders 09/25/19 17:36 US renal complete Stat 09/25/19 17:43 Complete Blood Count AUTO DIFF Stat Comprehensive Metabolic Panel Stat 09/25/19 19:04 XR acute abdomen series Stat Discontinued Medications Lidocaine HCl 6.5 ml/ Sodium (Chloride) 56.5 mls @ 339 mls/hr IV NOW ONE Stop: 09/25/19 17:38 Last Infusion: 09/25/19 18:40 Dose: 0 mls/hr Documented by: Admin: 09/25/19 18:05 Dose: 339 mls/hr Documented by: JOEL Sodium Chloride (Normal Saline 0.9%) 1,000 mls @ 1,000 mls/hr IV BOLUS ONE Stop: 09/25/19 18:35 Last Infusion: 09/25/19 19:50 Dose: 0 mls/hr Documented by: Admin: 09/25/19 18:03 Dose: 1,000 mls/hr Documented by: JOEL Ketorolac Tromethamine (Toradol) 15 mg IV NOW ONE Stop: 09/25/19 17:37 Last Admin: 09/25/19 18:04 Dose: 15 mg Documented by: JOEL Vital Signs Vital signs: Vital Signs - 8 hr 09/25/19 17:25 09/25/19 19:52 09/25/19 20:18 Temperature 98.6 F Pulse Rate 110 H 89 82 Respiratory Rate 18 17 Blood Pressure 140/86 132/69 Blood Pressure [Left Arm] 141/78 H Pulse Oximetry 98 94 96 MDM - Female Genitourinary Lab Data Result diagrams: 09/25/19 17:43 09/25/19 17:43 Labs: Lab Results 09/25/19 09/25/19 Range/Units 17:43 17:43 WBC 9.3 (4.5-11.0) X10^3/uL RBC 3.97 L (4.0-5.2) X10^6/uL Hgb 12.7 (12.0-16.0) g/dL Hct 37.1 (36-46) % MCV 93.4 (80-100) fL MCH 32.1 (26-34) PG MCHC 34.3 (30-36) % RDW 12.6 (11.6-14.8) % Plt Count 351 (150-400) X10^3/uL Neut % (Auto) 59.8 (50-75) % Lymph % (Auto) 23.8 L (25-40) % [place] % (Auto) 13.0 (3-14) % Eos % (Auto) 2.8 (2-4) % Baso % (Auto) 0.6 (0-2) % Neut # (Auto) 5600 (8620-6311) /uL Lymph # (Auto) 2200 (0555-8929) /uL [place] # (Auto) 1200 H (0-900) /uL Eos # (Auto) 300 (0-450) /uL Baso # (Auto) 100 (0-100) /uL Sodium 139 (137-145) mmol/L Potassium 4.3 (3.4-5.1) mmol/L Chloride 109 H (98-107) mmol/L Carbon Dioxide 22 (22-32) mmol/L BUN 18 H (7-17) mg/dL Creatinine 1.10 H (0.52-1.04) mg/dL Estimated GFR 54.0 L (>60) mL/min BUN/Creatinine Ratio 16.4 (6-22) Glucose 110 H (70-100) mg/dL Calcium 9.0 (8.4-10.2) mg/dL Total Bilirubin 0.3 (0.2-1.3) mg/dL AST 41 H (14-36) IU/L ALT 27 (<35) IU/L Alkaline Phosphatase 62 (38-126) U/L Total Protein 7.0 (6.3-8.2) g/dL Albumin 3.8 (3.5-5.0) g/dL Globulin 3.2 (1.7-4.1) g/dL Albumin/Globulin Ratio 1.2 (1.0-2.8) Urine Dip Bedside Urine Glucose Negative Bedside Urine Bilirubin - Negative Bedside Urine Ketone - Negative Urine Specific [place] 1.010 Bedside Urine Occult Blood +/- Bedside Urine pH 6.0 Bedside Urine Protein - Negative Bedside Urine Urobilinogen - Negative Bedside Urine Nitrite - Negative Bedside Urine Leukocytes - Negative Esterase Imaging Data Renal US: Radiologist's Impression: Chart Viewer Diagnostics DATE TYPE STATUS AUTHOR Hx 09/25/19 17:36 Yunior Perezderic 09/20/19 17:48 Maribel Ortiz 09/20/19 16:05 Skyler Lucas 09/20/19 15:38 Skyler Lucas 06/11/19 00:00 Eb Palacio 05/12/19 00:00 Eb Palacio 02/19/19 00:00 Keegan Schaeffer Stephanie M 44, 1975 [facility] ER, Main ED R02 86.183kg Urogenital-Female Search Chart No Data to Display NAUSEA Vomiting ONSET Today 17:25 Yohana Ayon 44 F 1975 [place] [address] Ultrasound Report Signed Patient: Yohana Ayon MMR#: [id number] : 1975Acct:[id number] Age/Sex: 44 / FDate of Service: 09/25/19 Loc: ED Accession Number: [id number] Procedure: US renal complete Ordering Provider: Abhijit Salas D.O. PROCEDURE: US RENAL COMPLETE INDICATIONS: R FLANK PAIN, KNOWN STONE TECHNIQUE: Real-time scanning was performed of the kidneys and bladder, with image docu mentation. COMPARISON: [facility], CT, CT KIDNEY URETER BLADDER (KUB), 09/20/2019, 17:56. FINDINGS: Kidneys: Kidneys are normal in size. Right kidney measures 14.2 cm long; left kidney measures 12.4 cm long. Right renal cortical thickness is 1.3 cm; left renal cortical thickness is 1.2 cm. Renal cortical echotexture is normal. Again noted is moderate right hydronephrosis. There is also a 5 mm nonobstructing right lower pole renal stone. No suspicious solid mass lesions. Bladder: Pre-void bladder volume is 157 mL. Post-void residual is zero mL. Pre-void images demonstrate no intraluminal masses or stones. On pre-void images, a left ureteral jet but no ureteral jet is noted with color Doppler interrogation. (Of note, ureteral jets may not be detectable in up to 25% of cases due to insufficient differences in specific gravity between ureteral and bladder urine). Miscellaneous: No free pelvic fluid. IMPRESSION: Continued moderate right hydronephrosis suggests continued right ureteral obstruction by a stone. Dictated by: Teo Perez M.D. on 09/25/2019 at 18:37 Approved by: Teo Perez M.D. on 09/25/2019 at 18:44 Discharge Plan Departure Patient Disposition: Home Clinical Impression: Renal colic on right side, Abdominal bloating Discharge Date/Time: 09/25/19 20:18 Instructions: DI for Kidney Stones, DI for Constipation Activity Restrictions/Additional Instructions: *You have been diagnosed with [right flank pain from known kidney stone, bloating likely a consequence of large stool burden] *What to do: *Take medications as directed *Follow up with your primary care provider in 2-3 days, call for an appointment. Let them know you were seen in the Emergency Department and that we ask that you be seen in follow up *Return to ER if you should have any new, worsening or concerning symptoms Prescriptions: New ketorolac 10 mg tablet 10 mg PO Q8H PRN (Reason: pain) Qty: 15 RF: 0 No Action meloxicam [Mobic] 7.5 MG tablet 7.5 mg PO AMCC Qty: 0 RF: 0 albuterol sulfate [Ventolin HFA] 90 MCG/PUFF HFA aerosol inhaler 1 puff INH PRNQty: 0 RF: 0 fluticasone propionate 16 GM spray,suspension 1 spray Intranasal Qty: 0 RF: 0 ibuprofen 800 mg tablet 800 mg PO Q6H MDD 3200mg Qty: 30 RF: 0 diclofenac sodium 1 % gel 4 gram TOP QID Qty: 100 RF: 0 Referrals: Susan Baxter MD [Family Provider] - Caitlin Petit ARNP [Primary Care Provider] -
[2019-09-25 17:52] LABS: Add Manual Diff / Slide Review NO; Basophils Absolute Auto 100 /uL (0-100); Basophils Percent Auto 0.6 % (0-2); Eosinophils Absolute Auto 300 /uL (0-450); Eosinophils Percent Auto 2.8 % (2-4); Hematocrit 37.1 % (36-46); Hemoglobin 12.7 g/dL (12.0-16.0); Lymphocytes Absolute Auto 2200 /uL (1100-4500); Lymphocytes Percent Auto 23.8 % (25-40); Mean Corpuscular HGB Conc 34.3 % (30-36); Mean Corpuscular Hemoglobin 32.1 PG (26-34); Mean Corpuscular Volume 93.4 fL (80-100); Monocytes Absolute Auto 1200 /uL (0-900); Neutrophils Absolute Auto 5600 /uL (1500-7000); Neutrophils Percent Auto 59.8 % (50-75); Platelet Count 351 X10^3/uL (150-400); Red Blood Cell Count 3.97 X10^6/uL (4.0-5.2); Red Cell Distribution Width 12.6 % (11.6-14.8); White Blood Cell Count 9.3 X10^3/uL (4.5-11.0)
[2019-09-25] MEDS: SODIUM CHLORIDE 0.9% 1,000 ML 1000 ML IV (18:03)
[2019-09-25] MEDS: KETOROLAC 60 MG/2 ML VIAL 15 MG IV (18:04)
[2019-09-25] MEDS: LIDOCAINE 2% 6.5 ML in SODIUM CHLORIDE 0.9% 50 ML 339 ML IV (18:05)
[2019-09-25 18:10] LABS: Alanine Aminotransferase 27 IU/L (<35); Albumin 3.8 g/dL (3.5-5.0); Albumin Globulin Ratio 1.2 (1.0-2.8); Alkaline Phosphatase 62 U/L (38-126); Aspartate Aminotransferase 41 IU/L (14-36); BUN Creatinine Ratio 16.4 (6-22); Bilirubin Total 0.3 mg/dL (0.2-1.3); Blood Urea Nitrogen 18 mg/dL (7-17); Carbon Dioxide 22 mmol/L (22-32); Chloride 109 mmol/L (98-107); Globulin 3.2 g/dL (1.7-4.1); Glucose 110 mg/dL (70-100); HEMOLYSIS < 15 (0-50); Potassium 4.3 mmol/L (3.4-5.1); Sodium 139 mmol/L (137-145)
--- NOTE | 2019-09-25 19:04 | DI.RAD.S_ITS ---
PROCEDURE: XR ACUTE ABDOMEN SERIES INDICATIONS: Abdominal pain. bloating TECHNIQUE: One view chest and two views of the abdomen were acquired. COMPARISON: [facility], CT, CT KIDNEY URETER BLADDER (KUB), 09/20/2019, 17:56. FINDINGS: Surgical changes and devices: Cholecystectomy clips.. Chest: Lungs are clear. Heart size is normal. No pleural effusions. No pneumoperitoneum. Abdomen: Bowel gas pattern is normal. No suspicious calcifications. Visualized solid organ contours appear normal. The obstructing right ureteral stone seen on CT 5 days ago is not identifiable by plain films. Bones: No suspicious bony lesions. IMPRESSION: 1. No evidence of acute pulmonary process. 2. No evidence acute abdominal process. Dictated by: Teo Perez M.D. on 09/25/2019 at 19:26 Approved by: Teo Perez M.D. on 09/25/2019 at 19:29
[2019-09-25 19:52] VITALS: BP 141/78; PULSE 89; RESP 17; O2SAT 94
[2019-09-25 20:18] VITALS: BP 132/69; PULSE 82; O2SAT 96
== END 2019-09-25 20:18 | disposition home or self-care (01) ==
PROVIDERS: Emergency Provider Emergency Medicine; Family Provider Urology; PCP Nurse Practitioner Gerontology
DX: N20.0 Calculus of kidney (principal); R14.0 Abdominal distension (gaseous)
CPT/HCPCS: 36415; 74022; 76770; 80053; 81003; 85025; 96365; 96375; 99284; J1885

== ENCOUNTER 2021-01-20 10:43 | Emergency (ER) | payer OTHER, MEDICAID, SELFPAY ==
[2021-01-20 10:55] VITALS: BP 109/78; PULSE 92; RESP 18; TEMP 37.3; O2SAT 95; BMI 33.9
[2021-01-20 11:27] LABS: Bacteria Urine None Seen; Culture Indicated Urine Cult Not Indicated; RBC Urine 5-10/HPF (0-5/HPF); Squamous Epithelial Cell Urine 5-10 /HPF (0-5/HPF); WBC Urine 5-10/HPF (0-5/HPF)
[2021-01-20] MEDS: SODIUM CHLORIDE 0.9% 1,000 ML 1000 ML IV (12:02)
--- NOTE | 2021-01-20 12:02 | ED_ITS ---
HPI - Fever General Chief Complaint: Fever Stated Complaint: FEVER,HEADACHE, ABD PAIN X 7 DAYS. NEG COVID Time Seen by Provider: 01/20/21 10:58 Source: patient Mode of arrival: Ambulatory Limitations: no limitations History of Present Illness HPI Narrative: 45-year-old female daily smoker presents multiple symptoms over the past week including generalized headache, runny nose, nasal congestion, sore throat, cough as well as abdominal bloating and urinary frequency, urgency and dysuria. She has been tested for COVID which has thus far been negative. She denies any significant shortness of breath. She denies any recent measured fever though subjectively feels warm. Her headache is generalized has been rath er persistent for many days. She has no neck pain or meningeal signs. She has no confusion, blurred vision or trouble with speech. She denies any unilateral numbness, tingling or weakness. Patient has generalized abdominal bloating and discomfort without any significant or obvious provocation or palliation. She has had no change in bowel habits such as constipation or diarrhea. Related Data Home Medications Medication Instructions Recorded Confirmed albuterol sulfate 90 mcg/actuation 1 puff INH PRN #0 05/15/16 aerosol inhaler (Ventolin HFA) fluticasone propionate 50 1 spray INTRANASAL #0 05/15/16 mcg/actuation nasal spray,suspension meloxicam 7.5 mg tablet (Mobic) 7.5 mg PO AMCC #0 05/15/16 Previous Rx's Medication Instructions Recorded diclofenac sodium 1 % topical gel 4 gram TOP QID #100 gram 11/24/18 ibuprofen 800 mg tablet 800 mg PO Q6H #30 tab MDD 3200mg 09/20/19 ketorolac 10 mg tablet 10 mg PO Q8H PRN #15 tab 09/25/19 cefpodoxime 200 mg tablet 200 mg PO BID 10 Days #20 tab 01/20/21 ketorolac 10 mg tablet 10 mg PO Q6H PRN #14 tab 01/20/21 ondansetron 4 mg disintegrating 4 mg PO TID-QID PRN #10 tab 01/20/21 tablet Allergies Allergy/AdvReac Type Severity Reaction Status Date / Time hydrocodone [HYDROCODONE] Allergy Unknown NAUSEA Verified 01/20/21 11:01 Sulfa (Sulfonamide Allergy Unknown Verified 01/20/21 11:01 Antibiotics) [SULFA (SULFONAMIDE ANTIBIOTICS)] tamsulosin [From Flomax] AdvReac Intermediate Vomiting Verified 01/20/21 11:01 Review of Systems Review of Systems Narrative: GENERAL: See HPI HEENT: See HPI RESPIRATORY: Denies dyspnea, cough, wheezing, hemoptysis, sputum. CARDIOVASCULAR: Denies chest pain, palpitations, orthopnea, edema, GASTROINTESTINAL: See HPI : See HP MUSCULOSKELETAL: denies weakness, joint pain, or bony pain SKIN: Denies rash, skin lesions, or other NEUROLOGIC: Denies weakness, headache, numbness, change in speech, confusion, seizures, incoordination. PSYCHIATRIC: No concerning psychosocial issues. 12 point review of systems is negative except for those stated above Patient History Medical History (Updated 01/20/21 @ 14:53 by Abhijit Salas DO) No significant medical problems Social History Smoking Status: Current every day smoker Smoking Status: Current every day smoker alcohol intake frequency: 0-2 drinks per day Substance Use Type: does not use Exam Narrative Exam Narrative: GENERAL: [45 year old patient appears stated age. Well-developed patient, in mild distress. HEAD: Atraumatic. Normocephalic. EYES: Pupils equal round and reactive. Extraocular motions intact. No scleral icterus. No injection or drainage. ENT: Nose without bleeding, purulent drainage. Throat without erythema, tonsillar hypertrophy or exudate. Airway patent. NECK: Trachea midline. Non tender. No meningeal signs CARDIOVASCULAR: Regular rate and rhythm without murmurs, gallops, or rubs. RESPIRATORY: Clear to auscultation. Breath sounds equal bilaterally. No wheezes, rales, or rhonchi. GASTROINTESTINAL: Abdomen soft, non-tender, nondistended. EXTREMITIES: No edema or joint tenderness. BACK: Nontender without deformity or crepitance. No flank tenderness. NEURO: AOx3. SKIN: No rash or erythema of visible areas Initial Vital Signs Initial Vital Signs: Vital Signs Temperature 99.1 F 01/20/21 10:55 Pulse Rate 92 H 01/20/21 10:55 Respiratory Rate 18 01/20/21 10:55 Blood Pressure 109/78 01/20/21 10:55 Pulse Oximetry 95 01/20/21 10:55 Course Orders Ordered: ED Orders 01/20/21 11:03 Urine Microscopic Stat 01/20/21 11:49 COVID19 -Nasal swab/Pre-Proc Stat Complete Blood Count AUTO DIFF Stat Comprehensive Metabolic Panel Stat Lactate (Lactic Acid) Stat 01/20/21 12:37 CT abdomen pelvis w con Stat 01/20/21 14:58 Blood Culture Stat Discontinued Medications Hydromorphone HCl (Hydromorphone 0.5 Mg Inj) 0.5 mg IV NOW ONE Stop: 01/20/21 13:01 Last Admin: 01/20/21 13:19 Dose: 0.5 mg Documented by: RUDY Sodium Chloride (Normal Saline 0.9%) 1,000 mls @ 1,000 mls/hr IV BOLUS ONE Stop: 01/20/21 12:13 Last Infusion: 01/20/21 13:57 Dose: 0 mls/hr Documented by: Admin: 01/20/21 12:02 Dose: 1,000 mls/hr Documented by: RUDY Ceftriaxone Sodium 2,000 mg/ (Sodium Chloride) 100 mls @ 200 mls/hr IV NOW ONE Stop: 01/20/21 13:01 Last Infusion: 01/20/21 13:57 Dose: 0 mls/hr Documented by: Admin: 01/20/21 13:20 Dose: 200 mls/hr Documented by: RUDY Ketorolac Tromethamine (Ketorolac 30 Mg/Ml Vial) 15 mg IV NOW ONE Stop: 01/20/21 14:50 Last Admin: 01/20/21 15:09 Dose: 15 mg Documented by: JO Consultations Consultation #1: Discussed with patient's urologist. She was able to review the imaging and states that there is no evidence of an obstructive uropathy. She feels patient is very appropriate for outpatient treatment of pyelonephritis and will follow-up as needed. Vital Signs Vital signs: Vital Signs - 8 hr 01/20/21 10:55 01/20/21 13:49 01/20/21 14:09 Temperature 99.1 F 100 F H Pulse Rate 92 H 95 H Respiratory Rate 18 Blood Pressure 109/78 148/70 H Pulse Oximetry 95 96 MDM - Fever Lab Data Result diagrams: 01/20/21 11:49 01/20/21 11:49 Labs: Lab Results 0901/20/21 01/20/21 Range/Units 11:03 11:49 11:49 WBC 28.6 H (4.5-11.0) X10^3/uL RBC 3.49 L (4.0-5.2) X10^6/uL Hgb 11.0 L (12.0-16.0) g/dL Hct 32.9 L (36-46) % MCV 94.2 (80-100) fL MCH 31.4 (26-34) PG MCHC 33.3 (30-36) % RDW 14.4 (11.6-14.8) % Plt Count 281 (150-400) X10^3/uL Neut % (Auto) Not Reportable Lymph % (Auto) Not Reportable Bureau % (Auto) Not Reportable Eos % (Auto) Not Reportable Baso % (Auto) Not Reportable Lymph # (Auto) Not Reportable Bureau # (Auto) Not Reportable Baso # (Auto) Not Reportable Total Counted 100 Seg Neutrophils % 78.0 H (38-70) % Lymphocytes % (Manual) 9.0 L (25-45) % Monocytes % (Manual) 12.0 H (2-11) % Eosinophils % (Manual) 1.0 L (2-4) % Neutrophils # (Manual) 38851 H (6200-7690) /uL RBC Morphology Normal morphology Sodium 136 L (137-145) mmol/L Potassium 4.9 (3.4-5.1) mmol/L Chloride 103 (98-107) mmol/L Carbon Dioxide 24 (22-32) mmol/L BUN 22 H (7-17) mg/dL Creatinine 1.29 H (0.52-1.04) mg/dL Estimated GFR 44.7 L (>60) mL/min BUN/Creatinine Ratio 17.1 (6-22) Glucose 139 H (70-100) mg/dL Lactate (0.7-2.1) mmol/L Calcium 8.7 (8.4-10.2) mg/dL Total Bilirubin 0.7 (0.2-1.3) mg/dL AST 78 H (14-36) IU/L ALT 97 H (<35) IU/L Alkaline Phosphatase 171 H (38-126) U/L Total Protein 7.0 (6.3-8.2) g/dL Albumin 3.7 (3.5-5.0) g/dL Globulin 3.3 (1.7-4.1) g/dL Albumin/Globulin Ratio 1.1 (1.0-2.8) Urine RBC 5-10/hpf H (0-5/HPF) Urine WBC 5-10/hpf H (0-5/HPF) Ur Squamous Epith Cells 5-10 /hpf H (0-5/HPF) Urine Bacteria None seen (None) Ur Culture Indicated? Cult not indicated SARS-CoV-2 (PCR) (Negative) 01/20/21 01/20/21 Range/Units 11:49 11:49 WBC (4.5-11.0) X10^3/uL RBC (4.0-5.2) X10^6/uL Hgb (12.0-16.0) g/dL Hct (36-46) % MCV (80-100) fL MCH (26-34) PG MCHC (30-36) % RDW (11.6-14.8) % Plt Count (150-400) X10^3/uL Neut % (Auto) Lymph % (Auto) Bureau % (Auto) Eos % (Auto) Baso % (Auto) Lymph # (Auto) Bureau # (Auto) Baso # (Auto) Total Counted Seg Neutrophils % (38-70) % Lymphocytes % (Manual) (25-45) % Monocytes % (Manual) (2-11) % Eosinophils % (Manual) (2-4) % Neutrophils # (Manual) (7250-7980) /uL RBC Morphology Sodium (137-145) mmol/L Potassium (3.4-5.1) mmol/L Chloride (98-107) mmol/L Carbon Dioxide (22-32) mmol/L BUN (7-17) mg/dL Creatinine (0.52-1.04) mg/dL Estimated GFR (>60) mL/min BUN/Creatinine Ratio (6-22) Glucose (70-100) mg/dL Lactate 0.6 L (0.7-2.1) mmol/L Calcium (8.4-10.2) mg/dL Total Bilirubin (0.2-1.3) mg/dL AST (14-36) IU/L ALT (<35) IU/L Alkaline Phosphatase (38-126) U/L Total Protein (6.3-8.2) g/dL Albumin (3.5-5.0) g/dL Globulin (1.7-4.1) g/dL Albumin/Globulin Ratio (1.0-2.8) Urine RBC (0-5/HPF) Urine WBC (0-5/HPF) Ur Squamous Epith Cells (0-5/HPF) Urine Bacteria (None) Ur Culture Indicated? SARS-CoV-2 (PCR) Negative (Negative) Urine Dip Bedside Urine Glucose Negative Bedside Urine Bilirubin - Negative Bedside Urine Ketone - Negative Urine Specific [place] 1.010 Bedside Urine Occult Blood +++ Bedside Urine pH 6.0 Bedside Urine Protein ++ 100 Bedside Urine Urobilinogen - Negative Bedside Urine Nitrite - Negative Bedside Urine Leukocytes - Negative Esterase Imaging Data CT scan - abdomen/pelvis: Radiologist's Impression: Yohana Ayon??45??F??1975 ? Allergy/Adv: hydrocodone, Sulfa (Sulfonamide Antibiotics), tamsulosin (More??) Close Abdomen/Pelvis CT (Addendum) Eb Palacio - 01/20/21 Chest/Abdomen X-ray (Signed) Teo Perez - 09/25/19 Renal Ultrasound (Signed) Teo Perez - 09/25/19 Abdomen/Pelvis CT (Signed) Maribel Ortiz - 09/20/19 Chest X-Ray (Signed) Skyler Lucas - 09/20/19 KUB X-Ray (Signed) Skyler Lucas - 09/20/19 Lumbar Spine MRI (Signed) Eb Palacio - 06/11/19 Abdomen X-Ray (Signed) Eb Palacio - 05/12/19 KUB X-Ray (Signed) Keegan Schaeffer - 02/19/19 [facility]ly [facility]?[address] [address] [address] Scan Report Addendum Patient: Yohana Ayon MR#: [id number] : 1975 Acct:[id number] Age/Sex: 45 / F Date of Service: 01/20/21 Loc: ED Accession Number: [id number] ?? Procedure: CT abdomen pelvis w con Ordering Provider: Abhijit Salas D.O. ADDENDUMThis report includes an Addendum and supersedes previous reports for this exam. ? ? ? PROCEDURE:? CT ABDOMEN PELVIS W CON ? INDICATIONS:? abdominal pain, nausea, vomiting ? TECHNIQUE:? After the administration of IV contrast, axial sections were acquired from the lung bases to the pubic symphysis.? Coronal and sagittal reformats were performed.? For radiation dose reduction, the following was used:? automated exposure control, adjustment of mA and/or kV according to patient size. ? COMPARISON:? [facility], CR, XR ACUTE ABDOMEN SERIES, 09/25/2019, 19:05.? [facility], US, US RENAL COMPLETE, 09/25/2019, 18:13.? [facility], CT, CT KIDNEY URETER BLADDER (KUB), 09/20/2019, 17:56. ? FINDINGS:? Image quality:? Excellent.? ? Lung bases:? Unremarkable.? ? Heart:? No significant findings. ? ? ABDOMEN: Liver:? The liver is enlarged and fatty infiltrated.? No focal liver lesions are seen. Gallbladder:? Removed.? ? Biliary ducts:? Unremarkable.? ? Pancreas:? Unremarkable.? ? Spleen:? Unremarkable.? ? Adrenal Glands:? Unremarkable.? ? Kidneys and Ureters:? The left kidney is abnormal, with enlarged size and fatty infiltration.? There is mild to moderate left-sided hydroureter and hydronephrosis.? This leads down to an area of mild free fluid within the left pelvis, which is likely retroperitoneal.? No stone can be seen within the distal left ureter.? Within this region, there is a 4.5 cm low-density focus seen. ? At the inferior pole of the left kidney, there is a water density cyst seen that measures 2.2 cm.? There is a tiny 1 mm nonobstructing stone seen within the left kidney. ? The right kidney is unremarkable, without hydronephrosis.? The previously seen right ureteral stone and right-sided obstructive uropathy has resolved. ? Stomach and Bowel:? Stomach, small bowel loops, and colon are unremarkable.? A normal appendix is incidentally noted.? Peritoneum:? No abnormal intraperitoneal fluid.? No free air.? ? Ventral Wall: ? No hernia.? Abdominal Nodes:? No retroperitoneal or mesenteric adenopathy by size criteria.? Vessels:? Aorta and inferior vena cava are normal in size.? ? PELVIS: Pelvic Organs: This patient is status post hysterectomy. No adnexal masses are seen.? Bladder:? Unremarkable.? ? Pelvic Nodes: No enlarged lymph nodes.? Miscellaneous: No inguinal hernias are seen. ? ? ? Bones:? There is focal L4-L5 degenerative change, with milder degenerative changes elsewhere. This patient has transitional lumbar anatomy. For the purposes of this examination, the level with the last well-developed pair of ribs is considered to be T12. ?By this numbering scheme, the L5 level is transitional and highly sacralized. ? ? IMPRESSION:? Abnormal left kidney, which appears swollen, with perinephric fat stranding. ?There is a prominent left ureter.? The left ureteral prominence leads down to the pelvis, where there is a focus of poorly defined fluid seen.? ? If clinically appropriate, please consider immediate follow-up CT images to evaluate for extraluminal opacified urine. ? Please consider urology consultation. ? Adjacent to the poorly defined fluid, there is a 4.5 cm low-density focus, which ma is most likely related to a simple ovarian cyst, although differential diagnosis in would also include a urinoma. ? No ureteral stones are seen. ? Incidental note is made of: Enlarged, fatty liver Cholecystectomy Normal appendix Hysterectomy Focal L4-L5 degenerative change Transitional lumbar anatomy, with a highly sacralized L5 level ? Note: Findings and recommendations discussed by telephone with Dr. Salas at 11:57 a.m. [place] time on January 20, 2021. ? Dictated by: Eb Palacio M.D. on 01/20/2021 at 11:48 ? ? Approved by: Eb Palacio M.D. on 01/20/2021 at 12:02 ? ? ? ADDENDUM: ? Additional images were obtained after delay of approximately 30 minutes.? On these images, NO findings of extraluminal urine can be seen. ? Areas of left ureteral narrowing can be seen.? No complete obstruction of the left ureter can be seen. ? The left pelvis cystic focus is attributed to a simple left ovarian cyst.? ? Please consider urology consultation. ? Dictated by: Eb Palacio M.D. on 01/20/2021 at 12:22 ? ? Approved by: Eb Palacio M.D. on 01/20/2021 at 12:24 ? Addendum Dictated By: Eb Palacio MD Addendum Signed By: Addendum Cosigned By: DD/ TD/TT: 01/20/21 PROCEDURE:? CT ABDOMEN PELVIS W CON ? INDICATIONS:? abdominal pain, nausea, vomiting ? TECHNIQUE:? After the administration of IV contrast, axial sections were acquired from the lung bases to the pubic symphysis.? Coronal and sagittal reformats were performed.? For radiation dose reduction, the following was used:? automated exposure control, adjustment of mA and/or kV according to patient size. ? COMPARISON:? [facility], CR, XR ACUTE ABDOMEN SERIES, 09/25/2019, 19:05.? [facility], US, US RENAL COMPLETE, 09/25/2019, 18:13.? [facility], CT, CT KIDNEY URETER BLADDER (KUB), 09/20/2019, 17:56. ? FINDINGS:? Image quality:? Excellent.? ? Lung bases:? Unremarkable.? ? Heart:? No significant findings. ? ? ABDOMEN: Liver:? The liver is enlarged and fatty infiltrated.? No focal liver lesions are seen. Gallbladder:? Removed.? ? Biliary ducts:? Unremarkable.? ? Pancreas:? Unremarkable.? ? Spleen:? Unremarkable.? ? Adrenal Glands:? Unremarkable.? ? Kidneys and Ureters:? The left kidney is abnormal, with enlarged size and fatty infiltration.? There is mild to moderate left-sided hydroureter and hydronephrosis.? This leads down to an area of mild free fluid within the left pelvis, which is likely retroperitoneal.? No stone can be seen within the distal left ureter.? Within this region, there is a 4.5 cm low-density focus seen. ? At the inferior pole of the left kidney, there is a water density cyst seen that measures 2.2 cm.? There is a tiny 1 mm nonobstructing stone seen within the left kidney. ? The right kidney is unremarkable, without hydronephrosis.? The previously seen right ureteral stone and right-sided obstructive uropathy has resolved. ? Stomach and Bowel:? Stomach, small bowel loops, and colon are unremarkable.? A normal appendix is incidentally noted.? Peritoneum:? No abnormal intraperitoneal fluid.? No free air.? ? Ventral Wall: ? No hernia.? Abdominal Nodes:? No retroperitoneal or mesenteric adenopathy by size criteria.? Vessels:? Aorta and inferior vena cava are normal in size.? ? PELVIS: Pelvic Organs: This patient is status post hysterectomy. No adnexal masses are seen.? Bladder:? Unremarkable.? ? Pelvic Nodes: No enlarged lymph nodes.? Miscellaneous: No inguinal hernias are seen. ? ? ? Bones:? There is focal L4-L5 degenerative change, with milder degenerative changes elsewhere. This patient has transitional lumbar anatomy. For the purposes of this examination, the level with the last well-developed pair of ribs is considered to be T12. ?By this numbering scheme, the L5 level is transitional and highly sacralized. ? ? IMPRESSION:? Abnormal left kidney, which appears swollen, with perinephric fat stranding. ?There is a prominent left ureter.? The left ureteral prominence leads down to the pelvis, where there is a focus of poorly defined fluid seen.? ? If clinically appropriate, please consider immediate follow-up CT images to evaluate for extraluminal opacified urine. ? Please consider urology consultation. ? Adjacent to the poorly defined fluid, there is a 4.5 cm low-density focus, which ma is most likely related to a simple ovarian cyst, although differential diagnosis in would also include a urinoma. ? No ureteral stones are seen. ? Incidental note is made of: Enlarged, fatty liver Cholecystectomy Normal appendix Hysterectomy Focal L4-L5 degenerative change Transitional lumbar anatomy, with a highly sacralized L5 level ? Note: Findings and recommendations discussed by telephone with Dr. Salas at 11:57 a.m. [place] time on January 20, 2021. ? Dictated by: Eb Palacio M.D. on 01/20/2021 at 11:48 ? ? Approved by: Eb Palacio M.D. on 01/20/2021 at 12:02 ? MDM Narrative Medical decision making narrative: Patient with systemic findings and left flank pain. Patient clearly feels unwell but has very reassuring vital signs and imaging. She is clinically consistent with a left-sided pyelonephritis. Consultation with Urology shares this opinion. They searched for urine cultures at the outside facility as we had none on file here, the sure the opinion that cephalosporins are appropriate. Cultures are pending. Patient's pain is well controlled, she is tolerating orals. She has been given return precautions and questions have been answered to her apparent satisfaction Discharge Plan Departure Patient Disposition: Home Clinical Impression: Pyelonephritis Instructions: DI for Kidney Infection Activity Restrictions/Additional Instructions: *You have been diagnosed with [left-sided pyelonephritis] *What to do: *Please continue to take your regular medications as directed. [x ] New medication prescriptions sent to your pharmacy: [[facility]] [ ] New medication written as a paper prescription [ ] No new medications given *Please follow up with your primary care provider in 2-3 days, call for an appointment. Let them know you were seen in the Emergency Department and that we ask that you be seen in follow up. We will electronically transmit a record of today's note if your PCP is in our system *If you do not have a primary care provider please contact the [facility] Resource line at [phone]. They will ask some questions about your medical history and help get you set up with a doctor in the community. *Return to Emergency Department if you should have any new, worsening or concerning symptoms, such as [fever greater than 101 F, shaking chills, worsening pain, persistent vomiting or other bothersome symptoms] Prescriptions: New cefpodoxime 200 mg tablet 200 mg PO BID 10 Days Qty: 20 RF: 0 ketorolac 10 mg tablet 10 mg PO Q6H PRN (Reason: pain) Qty: 14 RF: 0 ondansetron 4 mg tablet,disintegrating 4 mg PO TID-QID PRN (Reason: nausea and vomiting) Qty: 10 RF: 0 No Action meloxicam [Mobic] 7.5 MG tablet 7.5 mg PO AMCC Qty: 0 RF: 0 albuterol sulfate [Ventolin HFA] 90 MCG/PUFF HFA aerosol inhaler 1 puff INH PRNQty: 0 RF: 0 fluticasone propionate 16 GM spray,suspension 1 spray Intranasal Qty: 0 RF: 0 ibuprofen 800 mg tablet 800 mg PO Q6H MDD 3200mg Qty: 30 RF: 0 ketorolac 10 mg tablet 10 mg PO Q8H PRN (Reason: pain) Qty: 15 RF: 0 diclofenac sodium 1 % gel 4 gram TOP QID Qty: 100 RF: 0 Referrals: Susan Baxter MD [Family Provider] - Caitlin Petit ARNP [Primary Care Provider] -
[2021-01-20 12:09] LABS: Hematocrit 32.9 % (36-46); Mean Corpuscular HGB Conc 33.3 % (30-36); Mean Corpuscular Hemoglobin 31.4 PG (26-34); Mean Corpuscular Volume 94.2 fL (80-100); Platelet Count 281 X10^3/uL (150-400); Red Blood Cell Count 3.49 X10^6/uL (4.0-5.2); Red Cell Distribution Width 14.4 % (11.6-14.8); White Blood Cell Count 28.6 X10^3/uL (4.5-11.0)
[2021-01-20 12:11] LABS: Add Manual Diff / Slide Review YES; Alanine Aminotransferase 97 IU/L (<35); Albumin 3.7 g/dL (3.5-5.0); Albumin Globulin Ratio 1.1 (1.0-2.8); Alkaline Phosphatase 171 U/L (38-126); Aspartate Aminotransferase 78 IU/L (14-36); BUN Creatinine Ratio 17.1 (6-22); Bilirubin Total 0.7 mg/dL (0.2-1.3); Blood Urea Nitrogen 22 mg/dL (7-17); Calcium 8.7 mg/dL (8.4-10.2); Carbon Dioxide 24 mmol/L (22-32); Chloride 103 mmol/L (98-107); Estimated Glomerular Filt Rate 44.7 mL/min (>60); Globulin 3.3 g/dL (1.7-4.1); Glucose 139 mg/dL (70-100); HEMOLYSIS < 15 (0-50); Potassium 4.9 mmol/L (3.4-5.1); Sodium 136 mmol/L (137-145)
--- NOTE | 2021-01-20 12:13 | PC.NURSE ---
Patient reports flank pain and headache. Not felt well for several days. Took tylenol this morning.
[2021-01-20 12:22] LABS: COVID19 -Nasal RAPID Negative (Negative)
--- NOTE | 2021-01-20 12:37 | DI.CT.S_ITS ---
PROCEDURE: CT ABDOMEN PELVIS W CON INDICATIONS: abdominal pain, nausea, vomiting TECHNIQUE: After the administration of IV contrast, axial sections were acquired from the lung bases to the pubic symphysis. Coronal and sagittal reformats were performed. For radiation dose reduction, the following was used: automated exposure control, adjustment of mA and/or kV according to patient size. COMPARISON: [facility], CR, XR ACUTE ABDOMEN SERIES, 09/25/2019, 19:05. [facility], US, US RENAL COMPLETE, 09/25/2019, 18:13. [facility], CT, CT KIDNEY URETER BLADDER (KUB), 09/20/2019, 17:56. FINDINGS: Image quality: Excellent. Lung bases: Unremarkable. Heart: No significant findings. ABDOMEN: Liver: The liver is enlarged and fatty infiltrated. No focal liver lesions are seen. Gallbladder: Removed. Biliary ducts: Unremarkable. Pancreas: Unremarkable. Spleen: Unremarkable. Adrenal Glands: Unremarkable. Kidneys and Ureters: The left kidney is abnormal, with enlarged size and fatty infiltration. There is mild to moderate left-sided hydroureter and hydronephrosis. This leads down to an area of mild free fluid within the left pelvis, which is likely retroperitoneal. No stone can be seen within the distal left ureter. Within this region, there is a 4.5 cm low-density focus seen. At the inferior pole of the left kidney, there is a water density cyst seen that measures 2.2 cm. There is a tiny 1 mm nonobstructing stone seen within the left kidney. The right kidney is unremarkable, without hydronephrosis. The previously seen right ureteral stone and right-sided obstructive uropathy has resolved. Stomach and Bowel: Stomach, small bowel loops, and colon are unremarkable. A normal appendix is incidentally noted. Peritoneum: No abnormal intraperitoneal fluid. No free air. Ventral Wall: No hernia. Abdominal Nodes: No retroperitoneal or mesenteric adenopathy by size criteria. Vessels: Aorta and inferior vena cava are normal in size. PELVIS: Pelvic Organs: This patient is status post hysterectomy. No adnexal masses are seen. Bladder: Unremarkable. Pelvic Nodes: No enlarged lymph nodes. Miscellaneous: No inguinal hernias are seen. Bones: There is focal L4-L5 degenerative change, with milder degenerative changes elsewhere. This patient has transitional lumbar anatomy. For the purposes of this examination, the level with the last well-developed pair of ribs is considered to be T12. By this numbering scheme, the L5 level is transitional and highly sacralized. IMPRESSION: Abnormal left kidney, which appears swollen, with perinephric fat stranding. There is a prominent left ureter. The left ureteral prominence leads down to the pelvis, where there is a focus of poorly defined fluid seen. If clinically appropriate, please consider immediate follow-up CT images to evaluate for extraluminal opacified urine. Please consider urology consultation. Adjacent to the poorly defined fluid, there is a 4.5 cm low-density focus, which ma is most likely related to a simple ovarian cyst, although differential diagnosis in would also include a urinoma. No ureteral stones are seen. Incidental note is made of: Enlarged, fatty liver Cholecystectomy Normal appendix Hysterectomy Focal L4-L5 degenerative change Transitional lumbar anatomy, with a highly sacralized L5 level Note: Findings and recommendations discussed by telephone with Dr. Salas at 11:57 a.m. [place] time on January 20, 2021. Dictated by: Eb Palacio M.D. on 01/20/2021 at 11:48 Approved by: Eb Palacio M.D. on 01/20/2021 at 12:02
[2021-01-20 13:06] LABS: Neutrophils Absolute Manual 22308 /uL (3000-5900); Total Cells Counted 100
[2021-01-20 13:07] LABS: RBC Morphology Normal Morphology
[2021-01-20] MEDS: HYDROMORPHONE 0.5 MG INJ IV (13:19)
[2021-01-20] MEDS: cefTRIAXone 2,000 MG in SODIUM CHLORIDE 0.9% 100 ML 200 ML IV (13:20)
[2021-01-20 13:49] VITALS: TEMP 37.7
[2021-01-20 14:09] VITALS: BP 148/70; PULSE 95; O2SAT 96
[2021-01-20 14:48] LABS: Lactate (Lactic Acid) 0.6 mmol/L (0.7-2.1)
[2021-01-20] MEDS: KETOROLAC 30 MG/ML VIAL 15 MG IV (15:09)
== END 2021-01-20 15:29 | disposition home or self-care (01) ==
PROVIDERS: Emergency Provider Emergency Medicine; Family Provider Urology; PCP Nurse Practitioner Gerontology
DX: N12 Tubulo-interstitial nephritis, not specified as acute or chronic (principal); R50.9 Fever, unspecified; R51.9 Headache, unspecified; Z20.822 Contact with and (suspected) exposure to COVID-19
CPT/HCPCS: 36415; 74177; 80053; 81003; 81015; 83605; 85007; 85025; 87040; 87635; 96365; 96375; 99284; C9803; J0696; J1170; J1885

== ENCOUNTER 2021-10-08 19:11 | Emergency (ER) | payer OTHER, MEDICAID, SELFPAY ==
[2021-10-08 19:31] VITALS: BP 126/81; PULSE 82; RESP 16; TEMP 36.9; O2SAT 99; BMI 21.9
--- NOTE | 2021-10-08 20:13 | PC.NURSE ---
pt states she has a long history of kidney stone and this feels just like all the other times. she has already taken ibuprofen, flowmax and used heat but when she gets to a certain level of pain she normally comes to the ER for tordal and goes home feeling better
--- NOTE | 2021-10-08 20:34 | ED.BACK ---
HPI - Back Pain/Injury General Chief Complaint: Back Pain/Injury Stated Complaint: states is passing a kidney stone Time Seen by Provider: 10/08/21 20:24 Source: patient Mode of arrival: Ambulatory Limitations: no limitations History of Present Illness HPI Narrative: 46-year-old female who has had a history of multiple kidney stones in the past who is here for evaluation of pain and discomfort to her left side for the past 1-2 days that feels very similar to her prior stones. No fevers. She has passed stones in the past but is also needed intervention by Urology. He does see a urologist for stones. She did take Flomax prior to arrival. She states that Toradol very often helps her symptoms. No fevers. Nausea but no vomiting. No change in bowel habits. No skin rashes. Related Data Home Medications Medication Instructions Recorded Confirmed albuterol sulfate 90 mcg/actuation 1 puff INH PRN ##0 05/15/16 aerosol inhaler (Ventolin HFA) fluticasone propionate 50 1 spray intranasal ##0 05/15/16 mcg/actuation nasal spray,suspension meloxicam 7.5 mg tablet (Mobic) 7.5 mg PO AMCC ##0 05/15/16 Previous Rx's Medication Instructions Recorded diclofenac sodium 1 % topical gel 4 gram topical QID Knee pain and 11/24/18 swelling #100 grams ibuprofen 800 mg tablet 800 mg PO Q6H #30 tabs 09/20/19 ketorolac 10 mg tablet 10 mg PO Q8H PRN pain #15 tabs 09/25/19 ketorolac 10 mg tablet 10 mg PO Q6H PRN pain #14 tabs 01/20/21 ondansetron 4 mg disintegrating 4 mg PO TID-QID PRN nausea and 01/20/21 tablet vomiting #10 tabs cephalexin 500 mg capsule 500 mg PO QID 7 days #28 caps 10/08/21 ketorolac 10 mg tablet 10 mg PO Q6H PRN pain 5 days #20 10/08/21 tabs oxycodone-acetaminophen 5 mg-325 1 tab PO Q4-6H PRN pain #14 tabs 10/08/21 mg tablet (Percocet) tamsulosin 0.4 mg capsule (Flomax) 0.4 mg PO DAILY #14 caps 10/08/21 Allergies Allergy/AdvReac Type Severity Reaction Status Date / Time hydrocodone [HYDROCODONE] Allergy Unknown NAUSEA Verified 01/20/21 11:01 Sulfa (Sulfonamide Allergy Unknown Verified 01/20/21 11:01 Antibiotics) [SULFA (SULFONAMIDE ANTIBIOTICS)] tamsulosin [From Flomax] AdvReac Intermediate Vomiting Verified 01/20/21 11:01 Review of Systems Constitutional Constitutional: Denies fever(s) Cardiovascular Cardiovascular: Denies chest pain and Denies dyspnea Respiratory Respiratory: Denies dyspnea Gastrointestinal Gastrointestinal: Reports abdominal pain Genitourinary Genitourinary: Reports system reviewed and no additional complaints, except as documented and Reports dysuria Integumentary/Breasts Skin/Breast: Reports system reviewed and no additional complaints, except as documented Neurologic Neurologic: Reports system reviewed and no additional complaints, except as documented Hematologic/Lymphatic On Anticoagulants: No Patient History Medical History No significant medical problems Social History Smoking Status: Current every day smoker Smoking Status: Current every day smoker alcohol intake frequency: a few times a month Substance Use Type: marijuana Exam Initial Vital Signs Initial Vital Signs: Vital Signs Temperature 98.5 F 10/08/21 19:31 Pulse Rate 82 10/08/21 19:31 Respiratory Rate 16 10/08/21 19:31 Blood Pressure 126/81 10/08/21 19:31 Pulse Oximetry 99 10/08/21 19:31 Oxygen Delivery Method 10/08/21 19:31 Const General: cooperative and comfortable HENMT Head: normal to inspection and normocephalic Resp Effort & Inspection: normal respiratory effort Cardio Rate: regular rate GI Inspection: normal to inspection Palpation: soft, No firm and tender (Left-sided CVA) Back/Spine/Pelvis Back: CVA tenderness left Skin General: no rashes or lesions noted Neuro General: patient alert, patient awake and moves all extremities Extrem General: normal to inspection and capillary refill normal Psych Appearance: grossly normal and well kempt Course Orders Ordered: ED Orders 10/08/21 20:43 Basic Metabolic Panel Stat Complete Blood Count AUTO DIFF Stat 10/08/21 21:42 CT kidney ureter bladder (KUB) Stat 10/08/21 21:44 Urine Culture Stat Urine Microscopic Stat Discontinued Medications Cephalexin HCl (Cephalexin 250 Mg Capsule) 500 mg PO NOW ONE Stop: 10/08/21 23:28 Last Admin: 10/08/21 23:44 Dose: 500 mg Documented By: BAYRON Hydromorphone HCl (Hydromorphone 1 Mg Inj) 1 mg IV NOW ONE Stop: 10/08/21 21:43 Last Admin: 10/08/21 21:55 Dose: 1 mg Documented By: DIEUDONNE Ketorolac Tromethamine (Ketorolac 30 Mg/Ml Vial) 30 mg IV NOW ONE Stop: 10/08/21 20:35 Last Admin: 10/08/21 20:45 Dose: 30 mg Documented By: DIEUDONNE Ondansetron HCl (Ondansetron 4 Mg Odt Prepack) 1 bottle MISC SEEINSTR ONE Stop: 10/08/21 23:28 Last Admin: 10/08/21 23:44 Dose: 1 bottle Documented By: BAYRON Oxycodone/Acetaminophen (Oxycodone/Apap 5/325 Prepack) 1 bottle MISC SEEINSTR ONE Stop: 10/08/21 23:28 Last Admin: 10/08/21 23:44 Dose: 1 bottle Documented By: BAYRON Vital Signs Vital signs: Vital Signs - 8 hr 10/08/21 19:31 10/08/21 22:02 10/08/21 22:02 Temperature 98.5 F Pulse Rate 82 94 H Respiratory Rate 16 Blood Pressure 126/81 107/64 Pulse Oximetry 99 96 Oxygen Delivery Method Room Air 10/08/21 22:30 10/08/21 22:30 10/08/21 23:00 Temperature Pulse Rate 79 Respiratory Rate Blood Pressure 102/61 103/63 Pulse Oximetry 96 Oxygen Delivery Method 10/08/21 23:00 10/08/21 23:30 10/08/21 23:30 Temperature Pulse Rate 78 86 Respiratory Rate Blood Pressure 102/61 Pulse Oximetry 96 99 Oxygen Delivery Method MDM - Back Pain/Injury Lab Data Result diagrams: 10/08/21 20:43 10/08/21 20:43 Labs: Lab Results 10/08/21 10/08/21 10/08/21 Range/Units 20:43 20:43 21:44 WBC 17.2 H (4.5-11.0) X10^3/uL RBC 4.33 (4.0-5.2) X10^6/uL Hgb 14.5 (12.0-16.0) g/dL Hct 42.0 (36-46) % MCV 97.0 (80-100) fL MCH 33.3 (26-34) PG MCHC 34.4 (30-36) % RDW 12.4 (11.6-14.8) % Plt Count 280 (150-400) X10^3/uL Neut % (Auto) 79.9 H (50-75) % Lymph % (Auto) 10.0 L (25-40) % [place] % (Auto) 9.3 (3-14) % Eos % (Auto) 0.5 L (2-4) % Baso % (Auto) 0.3 (0-2) % Neut # (Auto) 50948 H (6652-6538) /uL Lymph # (Auto) 1700 (5338-8530) /uL [place] # (Auto) 1600 H (0-900) /uL Eos # (Auto) 100 (0-450) /uL Baso # (Auto) 100 (0-100) /uL Sodium 139 (137-145) mmol/L Potassium 4.0 (3.4-5.1) mmol/L Chloride 104 (98-107) mmol/L Carbon Dioxide 25 (22-32) mmol/L BUN 15 (7-17) mg/dL Creatinine 0.73 (0.52-1.04) mg/dL Estimated GFR > 60 (>60) mL/min BUN/Creatinine Ratio 20.5 (6-22) Glucose 128 H (70-100) mg/dL Calcium 9.1 (8.4-10.2) mg/dL Urine RBC 1-5/hpf (0-5/HPF) Urine WBC 30-100/hpf H (0-5/HPF) Ur Squamous Epith Cells 0-1 /hpf (0-5/HPF) Urine Bacteria Many (>30) H (None) Ur Culture Indicated? Specimen cultured Urine Dip Bedside Urine Glucose 100 mg/dl Bedside Urine Bilirubin - Negative Bedside Urine Ketone - Negative Urine Specific [place] 1.020 Bedside Urine Occult Blood +++ Bedside Urine pH 6.0 Bedside Urine Protein + 30 Bedside Urine Urobilinogen - Negative Bedside Urine Nitrite - Negative Bedside Urine Leukocytes ++ 125 Esterase MDM Narrative Medical decision making narrative: Patient is nontoxic appearing. Is afebrile. Not tachycardic. Toradol did help her symptoms but then the discomfort returned. Kidney functions unremarkable. Does have a leukocytosis. Urinalysis does have white blood cells and bacteria. CT scan shows mid ureteral left-sided 4 mm stone with hydro and perinephric stranding. I did discuss the case with Dr. Shrestha who is on-call for the patient's primary urologist who recommended that the patient be started on antibiotics, given symptom control, started on Flomax and instructed to contact her primary urologist tomorrow morning for a follow-up. Patient was given a 1st dose of antibiotics here in the ER and tolerated this without problems. Prescriptions for sent to the pharmacy of her choice. She was given return precautions. She expressed understanding and agreement. Discharge Plan Departure Patient Disposition: Home Clinical Impression: Renal colic, UTI (urinary tract infection) Instructions: Kidney Stones -- Adult, DI for Urinary Tract Infection (UTI) Activity Restrictions/Additional Instructions: Tomorrow you do need to contact your urologist for a follow-up. Take the medications as directed. Return to the emergency department for any new or worsening symptoms. Prescriptions: New tamsulosin [Flomax] 0.4 mg capsule 0.4 mg PO DAILY Qty: 14 0RF oxycodone-acetaminophen [Percocet] 5-325 mg tablet 1 tab PO Q4-6H PRN (Reason: pain) Qty: 14 0RF ketorolac 10 mg tablet 10 mg PO Q6H PRN (Reason: pain) 5 Days Qty: 20 0RF cephalexin 500 mg capsule 500 mg PO QID 7 Days Qty: 28 0RF No Action meloxicam [Mobic] 7.5 MG tablet 7.5 mg PO AMCC Qty: 0 albuterol sulfate [Ventolin HFA] 90 MCG/PUFF HFA aerosol inhaler 1 puff INH PRNQty: 0 fluticasone propionate 16 GM spray,suspension 1 spray Intranasal Qty: 0 ibuprofen 800 mg tablet 800 mg PO Q6H MDD 3200mg Qty: 30 0RF ketorolac 10 mg tablet 10 mg PO Q8H PRN (Reason: pain) Qty: 15 0RF ketorolac 10 mg tablet 10 mg PO Q6H PRN (Reason: pain) Qty: 14 0RF ondansetron 4 mg tablet,disintegrating 4 mg PO TID-QID PRN (Reason: nausea and vomiting) Qty: 10 0RF diclofenac sodium 1 % gel 4 gram TOP QID Qty: 100 0RF Rx Instructions: apply to single knee, ankle, foot; for foot includes sole/toes/top of foot Referrals: Caitlin Petit ARNP [Primary Care Provider] - Visit Report Forms: Patient Portal/API
[2021-10-08] MEDS: KETOROLAC 30 MG/ML VIAL IV (20:45)
[2021-10-08 20:53] LABS: Add Manual Diff / Slide Review NO; Basophils Absolute Auto 100 /uL (0-100); Basophils Percent Auto 0.3 % (0-2); Eosinophils Absolute Auto 100 /uL (0-450); Eosinophils Percent Auto 0.5 % (2-4); Hemoglobin 14.5 g/dL (12.0-16.0); Lymphocytes Absolute Auto 1700 /uL (1100-4500); Mean Corpuscular HGB Conc 34.4 % (30-36); Mean Corpuscular Hemoglobin 33.3 PG (26-34); Monocytes Absolute Auto 1600 /uL (0-900); Monocytes Percent Auto 9.3 % (3-14); Neutrophils Absolute Auto 13700 /uL (1500-7000); Neutrophils Percent Auto 79.9 % (50-75); Platelet Count 280 X10^3/uL (150-400); Red Blood Cell Count 4.33 X10^6/uL (4.0-5.2); Red Cell Distribution Width 12.4 % (11.6-14.8); White Blood Cell Count 17.2 X10^3/uL (4.5-11.0)
[2021-10-08 21:08] LABS: Chloride 104 mmol/L (98-107); Sodium 139 mmol/L (137-145)
[2021-10-08 21:09] LABS: BUN Creatinine Ratio 20.5 (6-22); Blood Urea Nitrogen 15 mg/dL (7-17); Calcium 9.1 mg/dL (8.4-10.2); Carbon Dioxide 25 mmol/L (22-32); Estimated Glomerular Filt Rate > 60 mL/min (>60); Glucose 128 mg/dL (70-100); HEMOLYSIS 49 (0-50)
--- NOTE | 2021-10-08 21:42 | DI.CT.S_ITS ---
PROCEDURE: CT KIDNEY URETER BLADDER (KUB) INDICATIONS: L side flank pain eval for stone TECHNIQUE: Axial sections were acquired from the lung bases to the pubic symphysis. Coronal and sagittal reformats were performed. For radiation dose reduction, the following was used: automated exposure control, adjustment of mA and/or kV according to patient size. COMPARISON: [facility], CT, CT KIDNEY URETER BLADDER (KUB), 09/20/2019, 17:56. FINDINGS: Image quality: Excellent. Lung bases: There is minimal atelectasis. Heart: Heart is normal in size. There is a small hiatal hernia. URINARY: Right Kidney and Ureter: There is a nonobstructing stone within the inferior pole of the right kidney measuring up to 0.5 cm. This demonstrates attenuation values of approximately 300-400 Hounsfield units. No hydronephrosis. No hydroureter. Left Kidney and Ureter: There is an obstructing stone within the mid left ureter measuring approximately 0.4 cm with associated moderate left hydroureteronephrosis. There is associated extensive perinephric fluid and fat stranding. A small nonobstructing 0.2 cm left renal stone is also demonstrated. Bladder: Normal wall thickness. No stones. ABDOMEN: Liver: Noncontrast evaluation of the liver demonstrates no discrete mass. Gallbladder: Surgically absent. Biliary ducts: No biliary ductal dilatation. Pancreas: Unremarkable. Spleen: Normal in size. Adrenal Glands: No adrenal nodules. Stomach and Bowel: Stomach, small bowel loops, and colon are normal in caliber and wall thickness. The appendix is normal in appearance. Peritoneum: No abnormal intraperitoneal fluid. No free air. Ventral Wall: No hernia. Abdominal Nodes: No retroperitoneal or mesenteric adenopathy by size criteria. Vessels: Aorta and inferior vena cava are normal in size. PELVIS: Pelvic Organs: Unremarkable. Pelvic Nodes: No enlarged lymph nodes. Miscellaneous: No inguinal hernias identified. Bones: Visualized osseous structures demonstrate no suspicious focal lesions. IMPRESSION: 1. Obstructing urinary stone in the mid left ureter with moderate left hydroureteronephrosis. 2. Additional bilateral nonobstructing renal stones as described. Dictated by: Alejandro Tian M.D. on 10/08/2021 at 22:49 Approved by: Alejandro Tian M.D. on 10/08/2021 at 22:55
[2021-10-08] MEDS: HYDROMORPHONE 1 MG INJ IV (21:55)
[2021-10-08 22:02] VITALS: BP 107/64; PULSE 94; O2SAT 96
[2021-10-08 22:02] LABS: RBC Urine 1-5/HPF (0-5/HPF)
[2021-10-08 22:03] LABS: Bacteria Urine Many (>30); Culture Indicated Urine Specimen Cultured; Squamous Epithelial Cell Urine 0-1 /HPF (0-5/HPF); WBC Urine 30-100/HPF (0-5/HPF)
[2021-10-08 22:30] VITALS: BP 102/61; PULSE 79; O2SAT 96
[2021-10-08 23:00] VITALS: BP 103/63; PULSE 78; O2SAT 96
[2021-10-08 23:30] VITALS: BP 102/61; PULSE 86; O2SAT 99
[2021-10-08] MEDS: ONDANSETRON 4 MG ODT PREPACK 1 BOTTLE MISC (23:44)
[2021-10-08] MEDS: OXYCODONE/APAP 5/325 PREPACK 1 BOTTLE MISC (23:44)
[2021-10-08] MEDS: cephALEXin 250 MG CAPSULE 500 MG PO (23:44)
== END 2021-10-08 23:46 | disposition home or self-care (01) ==
PROVIDERS: Emergency Provider Emergency Medicine; Family Provider Urology; PCP Nurse Practitioner Gerontology
DX: N39.0 Urinary tract infection, site not specified (principal); N23 Unspecified renal colic; R11.0 Nausea
CPT/HCPCS: 36415; 74176; 80048; 81003; 81015; 85025; 87077; 87086; 87186; 96374; 96375; 99284; J1170; J1885

== ENCOUNTER 2022-02-11 19:47 | Emergency (ER) | payer OTHER, MEDICAID, SELFPAY ==
[2022-02-11 20:17] VITALS: BP 100/52; PULSE 67; RESP 18; TEMP 36.6; O2SAT 99; BMI 22.1
[2022-02-11 21:34] LABS: Ictotest Urine Negative (Negative)
[2022-02-11 21:35] LABS: Bacteria Urine Few (2-10); Culture Indicated Urine Specimen Cultured; RBC Urine 5-10/HPF (0-5/HPF); Squamous Epithelial Cell Urine 1-5 /HPF (0-5/HPF); Transitional Epi Cells Urine 1-5/HPF (0-5/HPF); WBC Urine 5-10/HPF (0-5/HPF)
--- NOTE | 2022-02-11 23:34 | PC.NURSE ---
Pt reports pain with urinating since last night, subjective fevers and chills.
[2022-02-11 23:35] VITALS: BP 110/58; PULSE 65; RESP 18; TEMP 36.6; O2SAT 99
--- NOTE | 2022-02-11 23:44 | ED.GENADULT ---
HPI - General Adult General Chief complaint: Urogenital-Female Stated complaint: thinks she has a kidney infection Time Seen by Provider: 02/11/22 23:36 Source: patient Mode of arrival: Ambulatory History of Present Illness HPI narrative: Patient is a 46-year-old female who is here for evaluation approximately 24 hours of which she states is symptoms consistent with her prior history of urinary tract infections. She is getting urinary frequency and urgency and burning. She is also having lower back discomfort. No vomiting. Had multiple urinary tract infections in the past. Has also had kidney stones in the past. Related Data Home Medications Medication Instructions Recorded Confirmed albuterol sulfate 90 mcg/actuation 1 puff INH PRN ##0 05/15/16 aerosol inhaler (Ventolin HFA) fluticasone propionate 50 1 spray intranasal ##0 05/15/16 mcg/actuation nasal spray,suspension meloxicam 7.5 mg tablet (Mobic) 7.5 mg PO AMCC ##0 05/15/16 Previous Rx's Medication Instructions Recorded diclofenac sodium 1 % topical gel 4 gram topical QID Knee pain and 11/24/18 swelling #100 grams ibuprofen 800 mg tablet 800 mg PO Q6H #30 tabs 09/20/19 ketorolac 10 mg tablet 10 mg PO Q8H PRN pain #15 tabs 09/25/19 ketorolac 10 mg tablet 10 mg PO Q6H PRN pain #14 tabs 01/20/21 ondansetron 4 mg disintegrating 4 mg PO TID-QID PRN nausea and 01/20/21 tablet vomiting #10 tabs oxycodone-acetaminophen 5 mg-325 1 tab PO Q4-6H PRN pain #14 tabs 10/08/21 mg tablet (Percocet) tamsulosin 0.4 mg capsule (Flomax) 0.4 mg PO DAILY #14 caps 10/08/21 cephalexin 500 mg tablet 500 mg PO BID 7 days #14 tabs 02/12/22 ketorolac 10 mg tablet 10 mg PO TID PRN pain #12 tabs 02/12/22 Allergies Allergy/AdvReac Type Severity Reaction Status Date / Time hydrocodone [HYDROCODONE] Allergy Unknown NAUSEA Verified 01/20/21 11:01 Sulfa (Sulfonamide Allergy Unknown Verified 01/20/21 11:01 Antibiotics) [SULFA (SULFONAMIDE ANTIBIOTICS)] tamsulosin [From Flomax] AdvReac Intermediate Vomiting Verified 01/20/21 11:01 Review of Systems Constitutional Constitutional: Denies fever(s) Gastrointestinal Gastrointestinal: Reports system reviewed and no additional complaints, except as documented Genitourinary Genitourinary: Reports system reviewed and no additional complaints, except as documented Musculoskeletal Musculoskeletal: Reports system reviewed and no additional complaints, except as documented Integumentary/Breasts Skin/Breast: Reports system reviewed and no additional complaints, except as documented Patient History Medical History No significant medical problems Social History Smoking Status: Current every day smoker Smoking Status: Current every day smoker alcohol intake frequency: a few times a month Substance Use Type: marijuana Exam Initial Vital Signs Initial Vital Signs: Vital Signs Temperature 97.9 F 02/11/22 20:17 Pulse Rate 67 02/11/22 20:17 Respiratory Rate 18 02/11/22 20:17 Blood Pressure 100/52 L 02/11/22 20:17 Pulse Oximetry 99 02/11/22 20:17 Oxygen Delivery Method 02/11/22 20:17 HENMT Head: normal to inspection and normocephalic Resp Effort & Inspection: normal respiratory effort Cardio Rate: regular rate Back/Spine/Pelvis Back: No CVA tenderness Other: Tenderness along the lower back bilaterally Skin General: no rashes or lesions noted Neuro General: patient alert, patient awake and moves all extremities Extrem General: normal to inspection and capillary refill normal Course Orders Ordered: ED Orders 02/11/22 20:20 Ictotest Urine Stat Urine Microscopic Stat 02/11/22 21:58 Urine Culture Stat Discontinued Medications Cephalexin HCl (Cephalexin 250 Mg Capsule) 500 mg PO NOW ONE Stop: 02/11/22 23:46 Last Admin: 02/11/22 23:50 Dose: 500 mg Documented By: AT Ketorolac Tromethamine (Ketorolac 10 Mg Tablet) 10 mg PO NOW ONE Stop: 02/11/22 23:46 Last Admin: 02/11/22 23:50 Dose: 10 mg Documented By: AT Vital Signs Vital signs: Vital Signs - 8 hr 02/11/22 23:35 Temperature 97.9 F Pulse Rate 65 Respiratory Rate 18 Blood Pressure 110/58 L Pulse Oximetry 99 Oxygen Delivery Method Room Air Medical Decision Making Lab Data Labs: Lab Results 02/11/22 02/11/22 Range/Units 20:20 20:20 Ur Bilirubin Confirm Negative (Negative) Urine RBC 5-10/hpf H (0-5/HPF) Urine WBC 5-10/hpf H (0-5/HPF) Ur Squamous Epith Cells 1-5 /hpf (0-5/HPF) Ur Transition Epith Cell 1-5/hpf (0-5/HPF) Urine Bacteria Few (2-10) H (None) Ur Culture Indicated? Specimen cultured Urine Dip Bedside Urine Glucose Negative Bedside Urine Bilirubin ++ 2 Bedside Urine Ketone - Negative Urine Specific [place] 1.020 Bedside Urine Occult Blood +/- Bedside Urine pH 6.0 Bedside Urine Protein +/- 15 Bedside Urine Urobilinogen - Negative Bedside Urine Nitrite - Negative Bedside Urine Leukocytes - Negative Esterase Point of care testing: Urine Dip Bedside Urine Glucose Negative Bedside Urine Bilirubin ++ 2 Bedside Urine Ketone - Negative Urine Specific [place] 1.020 Bedside Urine Occult Blood +/- Bedside Urine pH 6.0 Bedside Urine Protein +/- 15 Bedside Urine Urobilinogen - Negative Bedside Urine Nitrite - Negative Bedside Urine Leukocytes - Negative Esterase MDM Narrative Medical decision making narrative: Nontoxic-appearing today. Vital signs are unremarkable. Is tolerating oral intake. Urinalysis consistent with urinary tract infection and this does fit her presentation. Review of medical record show that she had a pansensitive E coli in the past. Will start patient on Keflex she is allergic to sulfa. She was given her 1st dose here in the ER. A prescription was sent to the pharmacy of her choice. Will discharge patient home with return precautions. She expressed understanding and agreement Discharge Plan Departure Patient Disposition: Home Clinical Impression: Urinary tract infection Instructions: DI for Urinary Tract Infection (UTI) Activity Restrictions/Additional Instructions: Recommend that you take the antibiotics as directed. [facility] per your request. Return to the emergency department for any new or worsening symptoms. Prescriptions: New cephalexin 500 mg tablet 500 mg PO BID 7 Days Qty: 14 0RF ketorolac 10 mg tablet 10 mg PO TID PRN (Reason: pain) Qty: 12 0RF No Action meloxicam [Mobic] 7.5 MG tablet 7.5 mg PO AMCC Qty: 0 albuterol sulfate [Ventolin HFA] 90 MCG/PUFF HFA aerosol inhaler 1 puff INH PRNQty: 0 fluticasone propionate 16 GM spray,suspension 1 spray Intranasal Qty: 0 ibuprofen 800 mg tablet 800 mg PO Q6H MDD 3200mg Qty: 30 0RF ketorolac 10 mg tablet 10 mg PO Q8H PRN (Reason: pain) Qty: 15 0RF ketorolac 10 mg tablet 10 mg PO Q6H PRN (Reason: pain) Qty: 14 0RF ondansetron 4 mg tablet,disintegrating 4 mg PO TID-QID PRN (Reason: nausea and vomiting) Qty: 10 0RF diclofenac sodium 1 % gel 4 gram TOP QID Qty: 100 0RF Rx Instructions: apply to single knee, ankle, foot; for foot includes sole/toes/top of foot tamsulosin [Flomax] 0.4 mg capsule 0.4 mg PO DAILY Qty: 14 0RF oxycodone-acetaminophen [Percocet] 5-325 mg tablet 1 tab PO Q4-6H PRN (Reason: pain) Qty: 14 0RF Referrals: Caitlin Petit ARNP [Primary Care Provider] - Visit Report Forms: Patient Portal/API
[2022-02-11] MEDS: KETOROLAC 10 MG TABLET PO (23:50)
[2022-02-11] MEDS: cephALEXin 250 MG CAPSULE 500 MG PO (23:50)
== END 2022-02-12 00:29 | disposition home or self-care (01) ==
PROVIDERS: Emergency Provider Emergency Medicine; Family Provider Urology; PCP Nurse Practitioner Gerontology
DX: N39.0 Urinary tract infection, site not specified (principal); M54.50 Low back pain, unspecified
CPT/HCPCS: 81003; 81015; 87077; 87086; 99283